=== PATIENT | female | born 1945 | race Caucasian/White ===

== ENCOUNTER 2023-06-09 08:00 | Outpatient (CLI) | payer MEDICARE, MEDICAID ==
[2023-06-09 18:58] LABS: THYROID STIMULATING HORMONE 0.84 uIU/mL (0.34-5.60)
[2023-06-09 20:11] LABS: ESTIMATED AVERAGE GLUCOSE 226 mg/dL (70-100); HEMOGLOBIN A1c% 9.5 % (4.27-6.07)
== END 2023-06-09 23:59 | disposition home or self-care (01) ==
LOC: LAB.R 08:00
PROVIDERS: ATTEND Registered Nurse
DX: E03.9 Hypothyroidism, unspecified (principal); E11.42 Type 2 diabetes mellitus with diabetic polyneuropathy
CPT/HCPCS: 83036; 84439; 84443

== ENCOUNTER 2023-08-04 08:04 | Outpatient (CLI) | payer MEDICARE, MEDICAID ==
--- NOTE | 2023-08-04 11:14 | XRAY Report ---
PROCEDURE: Chest 2 View X-Ray INDICATIONS: PNEUMONIA TECHNIQUE: 2 views of the chest were acquired. COMPARISON: None. FINDINGS: Surgical changes and devices: None. Lungs and pleura: Diffuse coarsening of interstitial markings. No dense consolidation, pleural effus ion, or pneumothorax. Mediastinum: Mediastinal contours appear normal. Heart size is normal. Bones and chest wall: No suspicious bony lesions. Moderate degenerative change in left shoulder. Ove rlying soft tissues appear unremarkable. IMPRESSION: 1. Diffuse coarsening of interstitial markings may indicate edema or interstitial inflammation/ infec tion. Correlate clinically. 2. No dense consolidations or effusions. Reviewed by: Xochitl Sullivan MD on 08/04/2023 11:13 AM PDT Approved by: Xochitl Sullivan MD on 08/04/2023 11:13 AM PDT Station ID: [id number]
== END 2023-08-04 08:05 | disposition home or self-care (01) ==
LOC: DI 08:04
PROVIDERS: ATTEND Registered Nurse
DX: R06.89 Other abnormalities of breathing (principal); D64.9 Anemia, unspecified
CPT/HCPCS: 80053; 85025

== ENCOUNTER 2023-08-04 13:37 | Outpatient (CLI) | payer MEDICARE, MEDICAID ==
[2023-08-04 13:47] LABS: BASOPHILS # (AUTO) 0.1 10^3/uL (0.0-0.1); BASOPHILS % (AUTO) 0.8 %; EOSINOPHILS # (AUTO) 0.5 10^3/uL (0.0-0.7); EOSINOPHILS % (AUTO) 4.2 %; HCT - HEMATOCRIT 40.9 % (37.0-47.0); HGB - HEMOGLOBIN 13.6 g/dL (12.0-16.0); LYMPHOCYTES # (AUTO) 1.8 10^3/uL (1.5-3.5); LYMPHOCYTES % (AUTO) 16.2 %; MEAN CORPUSCULAR HEMOGLOBIN 30.1 pg (27.0-31.0); MEAN CORPUSCULAR HGB CONC 33.3 g/dL (32.0-36.0); MEAN CORPUSCULAR VOLUME 90.5 fL (81.0-99.0); MEAN PLATELET VOLUME 11.3 fL (7.9-10.8); MONOCYTES # (AUTO) 0.6 10^3/uL (0.0-1.0); MONOCYTES % (AUTO) 5.5 %; NEUTROPHILS # (AUTO) 7.7 10^3/uL (1.5-6.6); NEUTROPHILS % (AUTO) 71.8 %; PLT - PLATELET COUNT 253 10^3/uL (130-450); RED BLOOD COUNT 4.52 10^6/uL (4.20-5.40); RED CELL DISTRIBUTION WIDTH 12.3 % (12.0-15.0); WHITE BLOOD COUNT 10.8 x10^3/uL (4.8-10.8)
[2023-08-04 14:04] LABS: ALBUMIN 3.2 g/dL (3.2-5.5); ALBUMIN/GLOBULIN RATIO 1.4 (1.0-2.2); BILIRUBIN,TOTAL 0.4 mg/dL (0.2-1.0); CREATININE 0.8 mg/dL (0.6-1.3); POTASSIUM 3.8 mmol/L (3.5-4.5); TOTAL PROTEIN 5.5 g/dL (6.4-8.9)
== END 2023-08-04 13:38 | disposition home or self-care (01) ==
LOC: LAB.R 13:37
PROVIDERS: ATTEND Registered Nurse
DX: D64.9 Anemia, unspecified (principal)
CPT/HCPCS: 80053; 85025

== ENCOUNTER 2023-10-31 08:00 | Outpatient (CLI) | payer MEDICARE, MEDICAID ==
[2023-10-31 14:05] LABS: BASOPHILS # (AUTO) 0.1 10^3/uL (0.0-0.1); BASOPHILS % (AUTO) 0.6 %; EOSINOPHILS # (AUTO) 0.4 10^3/uL (0.0-0.7); EOSINOPHILS % (AUTO) 3.2 %; HCT - HEMATOCRIT 41.3 % (37.0-47.0); HGB - HEMOGLOBIN 13.4 g/dL (12.0-16.0); LYMPHOCYTES # (AUTO) 1.8 10^3/uL (1.5-3.5); MEAN CORPUSCULAR HEMOGLOBIN 29.3 pg (27.0-31.0); MEAN CORPUSCULAR HGB CONC 32.4 g/dL (32.0-36.0); MEAN CORPUSCULAR VOLUME 90.2 fL (81.0-99.0); MEAN PLATELET VOLUME 11.7 fL (7.9-10.8); MONOCYTES # (AUTO) 0.8 10^3/uL (0.0-1.0); MONOCYTES % (AUTO) 6.5 %; NEUTROPHILS # (AUTO) 8.9 10^3/uL (1.5-6.6); NEUTROPHILS % (AUTO) 74.4 %; PLT - PLATELET COUNT 197 10^3/uL (130-450); RED BLOOD COUNT 4.58 10^6/uL (4.20-5.40); RED CELL DISTRIBUTION WIDTH 13.2 % (12.0-15.0)
[2023-10-31 14:06] LABS: BILIRUBIN,URINE NEGATIVE (NEGATIVE); GLUCOSE, URINE (UA) NEGATIVE (NEGATIVE); KETONES,URINE (UA) NEGATIVE (NEGATIVE); LEUKOCYTE ESTERASE, URINE LARGE (NEGATIVE); NITRITE,URINE NEGATIVE (NEGATIVE); OCCULT BLOOD,URINE LARGE (NEGATIVE); PROTEIN,URINE 100 mg/dL (NEGATIVE); UROBILINOGEN,URINE 0.2 (NORMAL) E.U./dL (NORMAL)
[2023-10-31 14:07] LABS: CLARITY,URINE CLOUDY (CLEAR)
[2023-10-31 14:13] LABS: AMORPHOUS SEDIMENT,UR Few /LPF; BACTERIA,URINE Few /HPF (None Seen); MUCUS,URINE Few Strands; SQUAMOUS EPITHELIAL CELL,UR FEW Squamous (<= Few); WBC,URINE >25 /HPF (0-5)
[2023-10-31 14:20] LABS: CREATININE 0.9 mg/dL (0.6-1.3); POTASSIUM 4.2 mmol/L (3.5-4.5)
== END 2023-10-31 23:59 | disposition home or self-care (01) ==
LOC: LAB.R 08:00
PROVIDERS: ATTEND Registered Nurse
DX: I10 Essential (primary) hypertension (principal); Z86.73 Personal history of transient ischemic attack (TIA), and cerebral infarction without residual deficits; R39.81 Functional urinary incontinence
CPT/HCPCS: 80048; 81001; 85025; 87086; 87181

== ENCOUNTER 2023-11-09 08:00 | Outpatient (CLI) | payer MEDICARE, MEDICAID ==
[2023-11-09 20:00] LABS: BASOPHILS # (AUTO) 0.1 10^3/uL (0.0-0.1); BASOPHILS % (AUTO) 1.1 %; EOSINOPHILS # (AUTO) 0.4 10^3/uL (0.0-0.7); EOSINOPHILS % (AUTO) 4.9 %; HCT - HEMATOCRIT 41.2 % (37.0-47.0); HGB - HEMOGLOBIN 13.3 g/dL (12.0-16.0); LYMPHOCYTES # (AUTO) 1.8 10^3/uL (1.5-3.5); LYMPHOCYTES % (AUTO) 21.1 %; MEAN CORPUSCULAR HEMOGLOBIN 28.8 pg (27.0-31.0); MEAN CORPUSCULAR HGB CONC 32.3 g/dL (32.0-36.0); MEAN CORPUSCULAR VOLUME 89.2 fL (81.0-99.0); MEAN PLATELET VOLUME 11.5 fL (7.9-10.8); MONOCYTES # (AUTO) 0.6 10^3/uL (0.0-1.0); MONOCYTES % (AUTO) 7.2 %; NEUTROPHILS # (AUTO) 5.5 10^3/uL (1.5-6.6); NEUTROPHILS % (AUTO) 65.2 %; PLT - PLATELET COUNT 207 10^3/uL (130-450); RED BLOOD COUNT 4.62 10^6/uL (4.20-5.40); RED CELL DISTRIBUTION WIDTH 13.2 % (12.0-15.0); WHITE BLOOD COUNT 8.4 x10^3/uL (4.8-10.8)
[2023-11-09 20:16] LABS: ALBUMIN 3.6 g/dL (3.2-5.5); ALBUMIN/GLOBULIN RATIO 1.5 (1.0-2.2); BILIRUBIN,TOTAL 0.3 mg/dL (0.2-1.0); CALCIUM 8.9 mg/dL (8.5-10.3); MAGNESIUM 1.6 mg/dL (1.7-2.3); POTASSIUM 4.3 mmol/L (3.5-4.5)
== END 2023-11-09 23:59 | disposition home or self-care (01) ==
LOC: LAB.R 08:00
PROVIDERS: ATTEND Registered Nurse
DX: E11.42 Type 2 diabetes mellitus with diabetic polyneuropathy (principal); D64.9 Anemia, unspecified; E56.9 Vitamin deficiency, unspecified
CPT/HCPCS: 80053; 83735; 85025

== ENCOUNTER 2023-11-24 08:00 | Outpatient (CLI) | payer MEDICARE, MEDICAID ==
[2023-11-24 20:43] LABS: ESTIMATED AVERAGE GLUCOSE 214 mg/dL (70-100); HEMOGLOBIN A1c% 9.1 % (4.27-6.07)
== END 2023-11-24 23:59 | disposition home or self-care (01) ==
LOC: LAB.R 08:00
PROVIDERS: ATTEND Registered Nurse
DX: E11.42 Type 2 diabetes mellitus with diabetic polyneuropathy (principal); F32.2 Major depressive disorder, single episode, severe without psychotic features
CPT/HCPCS: 82306; 83036

== ENCOUNTER 2023-11-29 08:30 | Outpatient (CLI) | payer MEDICARE, MEDICAID ==
[2023-11-29 09:06] LABS: CHOL/HDL RATIO 2.7 (<4.4); CHOLESTEROL 126 mg/dL; HDL CHOLESTEROL 47 mg/dL; LDL CHOLESTEROL,CALCULATED 55 mg/dL; LDL/HDL RATIO 1.2 (<4.4); TRIGLYCERIDES 121 mg/dL (48-352); VLDL CHOLESTEROL 24 mg/dL
== END 2023-11-29 08:31 | disposition home or self-care (01) ==
LOC: LAB 08:30 → LAB.R 08:31
PROVIDERS: ATTEND Registered Nurse
DX: E11.42 Type 2 diabetes mellitus with diabetic polyneuropathy (principal)
CPT/HCPCS: 80061; 83721

== ENCOUNTER 2024-01-09 08:00 | Outpatient (CLI) | payer MEDICARE, MEDICAID ==
[2024-01-09 20:08] LABS: BASOPHILS # (AUTO) 0.1 10^3/uL (0.0-0.1); BASOPHILS % (AUTO) 0.8 %; EOSINOPHILS # (AUTO) 0.4 10^3/uL (0.0-0.7); EOSINOPHILS % (AUTO) 4.4 %; HCT - HEMATOCRIT 41.7 % (37.0-47.0); HGB - HEMOGLOBIN 13.1 g/dL (12.0-16.0); LYMPHOCYTES # (AUTO) 1.7 10^3/uL (1.5-3.5); LYMPHOCYTES % (AUTO) 20.9 %; MEAN CORPUSCULAR HEMOGLOBIN 28.1 pg (27.0-31.0); MEAN CORPUSCULAR HGB CONC 31.4 g/dL (32.0-36.0); MEAN CORPUSCULAR VOLUME 89.5 fL (81.0-99.0); MEAN PLATELET VOLUME 11.4 fL (7.9-10.8); MONOCYTES # (AUTO) 0.7 10^3/uL (0.0-1.0); MONOCYTES % (AUTO) 8.9 %; NEUTROPHILS # (AUTO) 5.1 10^3/uL (1.5-6.6); NEUTROPHILS % (AUTO) 64.5 %; PLT - PLATELET COUNT 187 10^3/uL (130-450); RED BLOOD COUNT 4.66 10^6/uL (4.20-5.40); RED CELL DISTRIBUTION WIDTH 13.3 % (12.0-15.0); WHITE BLOOD COUNT 7.9 x10^3/uL (4.8-10.8)
[2024-01-09 20:23] LABS: ALBUMIN 3.3 g/dL (3.2-5.5); ALBUMIN/GLOBULIN RATIO 1.4 (1.0-2.2); BILIRUBIN,TOTAL 0.4 mg/dL (0.2-1.0); CALCIUM 9.1 mg/dL (8.5-10.3); MAGNESIUM 1.9 mg/dL (1.7-2.3); POTASSIUM 3.9 mmol/L (3.5-4.5); TOTAL PROTEIN 5.6 g/dL (6.4-8.9)
== END 2024-01-09 23:59 | disposition home or self-care (01) ==
LOC: LAB 08:00
PROVIDERS: ATTEND Registered Nurse
DX: I10 Essential (primary) hypertension (principal); D64.9 Anemia, unspecified; Z86.73 Personal history of transient ischemic attack (TIA), and cerebral infarction without residual deficits
CPT/HCPCS: 36415; 80053; 83735; 85025

== ENCOUNTER 2024-01-11 08:00 | Outpatient (CLI) | payer MEDICARE, MEDICAID ==
--- NOTE | 2024-01-11 19:20 | XRAY Report ---
PROCEDURE: Hand 3 View LT INDICATIONS: LEFT HAND PAIN TECHNIQUE: 3 views of the hand(s) acquired. COMPARISON: None. FINDINGS: Bones: There is flexion at the fifth PIP joint. Diffuse osteopenia is seen. No fractures or dislocati ons. Moderate to severe osteoarthritic changes throughout left hand and wrist joints are seen most n otably involving first CMC joint. No definite bony erosive changes. No suspicious bony lesions. Soft tissues: No suspicious soft tissue calcifications or masses. IMPRESSION: Flexion at fourth PIP joint. No acute fracture or dislocation. Diffuse osteopenia. Moderate to severe osteoarthritic changes in left hand as above. Reviewed by: Fuad Olivas MD on 01/11/2024 7:18 PM PDT Approved by: Fuad Olivas MD on 01/11/2024 7:18 PM PDT Station ID: [id number]
== END 2024-01-11 23:59 | disposition home or self-care (01) ==
LOC: DI.WOS 08:00
PROVIDERS: ATTEND Physician Assistant Surgical
DX: M19.042 Primary osteoarthritis, left hand (principal); M85.842 Other specified disorders of bone density and structure, left hand; M19.032 Primary osteoarthritis, left wrist; M18.12 Unilateral primary osteoarthritis of first carpometacarpal joint, left hand

== ENCOUNTER 2024-02-08 09:00 | Outpatient (CLI) | payer MEDICARE, MEDICAID ==
[2024-02-09 09:08] LABS: BILIRUBIN,URINE NEGATIVE (NEGATIVE); GLUCOSE, URINE (UA) 100 mg/dL (NEGATIVE); KETONES,URINE (UA) NEGATIVE (NEGATIVE); LEUKOCYTE ESTERASE, URINE NEGATIVE (NEGATIVE); NITRITE,URINE NEGATIVE (NEGATIVE); OCCULT BLOOD,URINE NEGATIVE (NEGATIVE); PROTEIN,URINE NEGATIVE (NEGATIVE); UROBILINOGEN,URINE 0.2 (NORMAL) E.U./dL (NORMAL)
[2024-02-09 09:14] LABS: CLARITY,URINE CLEAR (CLEAR)
== END 2024-02-08 09:01 | disposition home or self-care (01) ==
LOC: LAB.R 09:00 → LAB 02-09 09:01
PROVIDERS: ATTEND Registered Nurse
DX: N39.0 Urinary tract infection, site not specified (principal)
CPT/HCPCS: 81001; 81003; 87086

== ENCOUNTER 2024-03-03 08:52 | Outpatient (CLI) | payer MEDICARE, MEDICAID ==
[2024-03-03 09:18] LABS: BILIRUBIN,URINE NEGATIVE (NEGATIVE); GLUCOSE, URINE (UA) >=1000 mg/dL (NEGATIVE); KETONES,URINE (UA) NEGATIVE (NEGATIVE); LEUKOCYTE ESTERASE, URINE NEGATIVE (NEGATIVE); NITRITE,URINE NEGATIVE (NEGATIVE); OCCULT BLOOD,URINE NEGATIVE (NEGATIVE); PH,URINE 5.5 PH (5.0-7.5); PROTEIN,URINE NEGATIVE (NEGATIVE); UROBILINOGEN,URINE 0.2 (NORMAL) E.U./dL (NORMAL)
[2024-03-03 09:20] LABS: CLARITY,URINE CLEAR (CLEAR)
== END 2024-03-03 08:53 | disposition home or self-care (01) ==
LOC: LAB.R 08:52
PROVIDERS: ATTEND Registered Nurse
DX: N39.0 Urinary tract infection, site not specified (principal)
CPT/HCPCS: 81001; 81003; 87086

== ENCOUNTER 2024-06-17 08:00 | Outpatient (CLI) | payer MEDICARE, MEDICAID ==
[2024-06-17 15:44] LABS: ALBUMIN 3.9 g/dL (3.2-5.5); ALBUMIN/GLOBULIN RATIO 1.4 (1.0-2.2); BILIRUBIN,TOTAL 0.6 mg/dL (0.2-1.0); CALCIUM 9.6 mg/dL (8.5-10.3); CREATININE 1.1 mg/dL (0.6-1.3); MAGNESIUM 1.9 mg/dL (1.7-2.3); POTASSIUM 4.6 mmol/L (3.5-4.5); TOTAL PROTEIN 6.7 g/dL (6.4-8.9)
[2024-06-17 17:15] LABS: THYROID STIMULATING HORMONE 3.66 uIU/mL (0.34-5.60)
== END 2024-06-17 23:59 | disposition home or self-care (01) ==
LOC: LAB.R 08:00
PROVIDERS: ATTEND Family Medicine
DX: I10 Essential (primary) hypertension (principal); E78.5 Hyperlipidemia, unspecified; E11.42 Type 2 diabetes mellitus with diabetic polyneuropathy; E61.2 Magnesium deficiency; E03.9 Hypothyroidism, unspecified
CPT/HCPCS: 80053; 83036; 83735; 84443; 85025

== ENCOUNTER 2024-11-29 05:43 | Inpatient (IN) ==
[2024-11-29 06:05] LABS: BASOPHILS % (AUTO) 0.9 %; EOSINOPHILS % (AUTO) 0.2 %; HCT - HEMATOCRIT 48.2 % (37.0-47.0); HGB - HEMOGLOBIN 15.3 g/dL (12.0-16.0); MEAN CORPUSCULAR HEMOGLOBIN 28.4 pg (27.0-31.0); MEAN CORPUSCULAR HGB CONC 31.7 g/dL (32.0-36.0); MEAN CORPUSCULAR VOLUME 89.6 fL (81.0-99.0); MEAN PLATELET VOLUME 11.6 fL (7.9-10.8); MONOCYTES % (AUTO) 14.6 %; NEUTROPHILS % (AUTO) 68.7 %; PLT - PLATELET COUNT 185 10^3/uL (130-450); RED BLOOD COUNT 5.38 10^6/uL (4.20-5.40); RED CELL DISTRIBUTION WIDTH 14.1 % (12.0-15.0); WHITE BLOOD COUNT 10.6 x10^3/uL (4.8-10.8)
--- NOTE | 2024-11-29 06:11 | ED Physician Documentation ---
PD HPI DYSPNEA Stated complaint Stated Complaint: + COVID Chief complaint Chief Complaint: Resp History obtained from History obtained from: EMS Additional information Additional information: 79yF with pmh MARK, DM ,TIA Presents with shortness of breath overnight and hypoxia with confusion after being diagnosed with COVID yesterday. Patient was lethargic overnight and had oxygen saturation in the low 80s on room air. She is normally alert and oriented x 3 and today cannot identify the month or year appropriately. Further history limited by patient altered mental status. Meds/Allgy Home Medications Ambulatory Orders Medication Instructions Recorded Confirmed amlodipine 10 mg tablet (Norvasc) 10 mg PO QDAY 11/13/24 11/14/24 aripiprazole 5 mg tablet 5 mg PO QDAY 11/13/24 11/14/24 atorvastatin 10 mg tablet (Lipitor) 10 mg PO QDAY 11/13/24 11/14/24 bupropion HCl 150 mg 24 hr tablet, 150 mg PO QAM 11/13/24 11/14/24 extended release (Wellbutrin XL) diclofenac sodium 1 % topical gel 4 g topical QID 11/13/24 11/14/24 diphenoxylate-atropine 2.5 1 tab PO QDAY 11/13/24 11/14/24 mg-0.025 mg tablet duloxetine 30 mg capsule,delayed 30 mg PO QDAY 11/13/24 11/14/24 release empagliflozin 10 mg tablet 10 mg PO QDAY 11/13/24 11/14/24 (Jardiance) furosemide 20 mg tablet 20 mg PO QDAY 11/13/24 11/14/24 hydrocortisone 2.5 % topical cream 1 applic topical BID PRN rash 11/13/24 11/14/24 hydroxyzine HCl 25 mg tablet 25 mg PO BID PRN itching 11/13/24 11/14/24 insulin glargine 100 unit/mL (3 10 unit subcut .unknown 11/13/24 11/14/24 mL) subcutaneous pen (Basaglar KwikPen U-100 Insulin) insulin glargine 100 unit/mL (3 1 unit subcut QPM 11/13/24 11/14/24 mL) subcutaneous pen (Lantus Solostar U-100 Insulin) insulin lispro 100 unit/mL 1 sliding scale dose subcut 11/13/24 11/14/24 subcutaneous pen (Humalog KwikPen USEASDIRECTD (U-100) Insulin) levothyroxine 175 mcg capsule 175 mcg PO QDAY 11/13/24 11/15/24 lidocaine 5 % topical patch 2 patch topical QDAY 11/13/24 11/14/24 lisinopril 20 mg tablet 30 mg PO QDAY 11/13/24 11/14/24 lisinopril 30 mg tablet 30 mg PO QDAY 11/13/24 11/14/24 montelukast 4 mg chewable tablet 4 mg PO DAILY 11/13/24 11/14/24 nystatin 100,000 unit/mL oral 1 ml PO QDAY 11/13/24 11/14/24 suspension oxycodone 5 mg tablet 5 mg PO Q4H PRN pain #10 tabs 11/13/24 11/14/24 oxycodone-acetaminophen 5 mg-325 1 tab PO Q8H PRN pain 11/13/24 11/14/24 mg tablet pregabalin 150 mg capsule 150 mg PO QDAY 11/13/24 11/14/24 Allergies Allergies Allergy/AdvReac Type Severity Reaction Status Date / Time venom-honey bee Allergy Severe Anaphylaxis Verified 11/29/24 05:56 potassium sorbate Allergy Mild Unknown Verified 11/29/24 05:56 warfarin AdvReac Mild Alopecia Verified 11/29/24 05:56 [facility] Medical History Medical History (Updated 11/15/24 @ 08:09 by Fady Lo MD) COPD (chronic obstructive pulmonary disease) IBS (irritable bowel syndrome) TIA (transient ischemic attack) Trigger finger of left hand Surgical History Surgical History (Updated 11/13/24 @ 11:17 by Albina Ferrara CMA, ROT) History of arthroplasty of both knees Social History Social History (Updated 11/14/24 @ 14:17 by Neelam Martinez RN) Smoking Status: Unknown if ever smoked Second hand tobacco smoke exposure: No Do you dip or chew tobacco?: No Do you vape?: No Living arrangement: Assisted living and group home Relationship: Do you feel safe in your home environment?: Yes Suffered physical, verbal, emotional, or financial abuse?: No Exam Constitutional elderly appearing with mild increased work of breathing HENMT normocephalic and head/scalp atraumatic Eyes PERRL and EOMs intact bilaterally Neck/C-Spine visual inspection normal Chest inspection of chest normal Respiratory coarse bilateral breath sounds, mild increased wob Cardiovascular normal heart rate noted and regular rhythm noted Gastrointestinal abdomen normal to inspection Results Vitals Vitals: Vital Signs - 24 hr 11/29/24 05:51 Temperature 36.0 C L Temperature Source Temporal Artery Scan Pulse Rate 89 Respiratory Rate 18 Blood Pressure 151/57 H O2 Saturation 88 L O2 Source Room air Pain Intensity 0 Oxygen O2 Source Room air PD Medical Decision Making ED course ED course: 79-year-old woman presents with hypoxia, altered mental status, lethargy in the setting of recent COVID diagnosis yesterday. Medical workup was undertaken and patient will be admitted pending bed availability. We are currently boarding to patient's already for admission in the emergency department and she will be the third patient boarding for admission. Plan to endorse to incoming daytime EDMD at 7 AM shift change. Discharge Plan Discharge Prescriptions: No Action insulin glargine [Basaglar KwikPen U-100 Insulin] 100 unit/mL (3 mL) insulin pen 10 unit subcut .unknown diclofenac sodium 1 % gel 4 g topical QID Rx Instructions: apply to single knee, ankle, foot; for foot includes sole/toes/top of foot Jardiance 10 mg tablet 10 mg PO QDAY insulin glargine [Lantus Solostar U-100 Insulin] 100 unit/mL (3 mL) insulin pen 1 unit subcut QPM pregabalin 150 mg capsule 150 mg PO QDAY duloxetine 30 mg capsule,delayed release(DR/EC) 30 mg PO QDAY aripiprazole 5 mg tablet 5 mg PO QDAY bupropion HCl [Wellbutrin XL] 150 mg tablet extended release 24 hr 150 mg PO QAM insulin lispro [Humalog KwikPen Insulin] 100 unit/mL insulin pen 1 sliding scale dose subcut USEASDIRECTD hydrocortisone 2.5 % cream 1 applic topical BID PRN (Reason: rash) furosemide 20 mg tablet 20 mg PO QDAY lisinopril 30 mg tablet 30 mg PO QDAY oxycodone-acetaminophen 5-325 mg tablet 1 tab PO Q8H PRN (Reason: pain) nystatin 100,000 unit/mL suspension 1 ml PO QDAY Rx Instructions: swish and swallow hydroxyzine HCl 25 mg tablet 25 mg PO BID PRN (Reason: itching) montelukast 4 mg tablet,chewable 4 mg PO DAILY lidocaine 5 % adhesive patch,medicated 2 patch topical QDAY Rx Instructions: leave on most painful area for up to 12 hrs amlodipine [Norvasc] 10 mg tablet 10 mg PO QDAY diphenoxylate-atropine 2.5-0.025 mg tablet 1 tab PO QDAY atorvastatin [Lipitor] 10 mg tablet 10 mg PO QDAY lisinopril 20 mg tablet 30 mg PO QDAY levothyroxine 175 mcg capsule 175 mcg PO QDAY oxycodone 5 mg tablet 5 mg PO Q4H PRN (Reason: pain) Qty: 10 0RF Print Language: Uzbek Stand Alone Forms: PCP List
[2024-11-29 06:12] LABS: ABNORMAL LYMPHS % (MANUAL) 0 %
[2024-11-29 06:32] LABS: ALBUMIN 3.7 g/dL (3.2-5.5); ALBUMIN/GLOBULIN RATIO 1.4 (1.0-2.2); ALKALINE PHOSPHATASE 94 IU/L (42-121); ALT ALANINE AMINOTRANSFERASE 20 IU/L (10-60); AST ASPARTATE AMINOTRANSFERASE 21 IU/L (10-42); BILIRUBIN,TOTAL 0.8 mg/dL (0.2-1.0); BUN - BLOOD UREA NITROGEN 34 mg/dL (6-20); CALCIUM 9.2 mg/dL (8.5-10.3); CARBON DIOXIDE - CO2 29 mmol/L (21-32); CHLORIDE 105 mmol/L (101-111); CREATININE 1.3 mg/dL (0.6-1.3); GFR - MDRD 39 (>89); GLUCOSE 199 mg/dL (74-104); POTASSIUM 4.7 mmol/L (3.5-4.5); SODIUM 141 mmol/L (135-145); TOTAL PROTEIN 6.4 g/dL (6.4-8.9)
[2024-11-29] MEDS: SODIUM CHLORIDE 0.9% 500 ML IV ONE (06:32)
[2024-11-29 06:36] LABS: LIPASE < 10 U/L (11-82)
[2024-11-29 06:37] LABS: VBG PCO2 36.1 mmHg (41-51); VBG PH 7.486 (7.31-7.41)
[2024-11-29 06:38] LABS: VBG BASE EXCESS 3.9 mmol/L (-2 - +2); VBG TOTAL CO2 28.6 mmol/L (24-29)
[2024-11-29 06:48] LABS: BAND NEUTROPHILS % (MANUAL) 3 %; DIFFERENTIAL COMMENT MANUAL DIFFERENTIAL; EOSINOPHILS # (MANUAL) 0.1 10^3/uL (0-0.7); LYMPHOCYTES # (MANUAL) 1.6 10^3/uL (1.5-3.5); LYMPHOCYTES % (MANUAL) 15 %; MONOCYTES # (MANUAL) 1.9 10^3/uL (0.0-1.0); PLATELET ESTIMATE, MANUAL NORMAL (130-450,000) (NORMAL); PLATELET MORPHOLOGY NORMAL APPEARANCE (NORMAL); RBC MORPHOLOGY (MULTIPLE) NORMAL APPEARANCE (NORMAL); WBC MORPHOLOGY (MULTIPLE) NORMAL APPEARANCE (NORMAL)
--- NOTE | 2024-11-29 08:14 | XRAY Report ---
PROCEDURE: XR Chest 1V INDICATIONS: Chest Pain TECHNIQUE: One view of the chest was acquired. COMPARISON: None. FINDINGS: Surgical changes and devices: None. Lungs and pleura: No pleural effusions or pneumothorax. Question patchy right basilar atelectasis.. Mediastinum: Mediastinal contours appear normal. Rotated film. Heart size is likely normal. Bones and chest wall: No suspicious bony lesions. Overlying soft tissues appear unremarkable. IMPRESSION: Rotated view. Question patchy right basilar atelectasis. Heart size is likely normal. Findings are concordant with preliminary interpretation provided by [facility]. Reviewed by: David Erickson MD on 11/29/2024 8:13 AM PST Approved by: David Erickson MD on 11/29/2024 8:13 AM PST Station ID: [id number]
--- NOTE | 2024-11-29 11:28 | ED Physician Documentation ---
ED Addendum Addendum Addendum: I did talk with the hospitalist at morning rounds at 9 AM. They were expecting 1 or 2 discharges this afternoon so for the patient will make it to the floor. Meanwhile I did order her usual scheduled medicines that were appropriate for the day. She still seems generally weak and a bit confused. She remains responsive and answers questions. Still seems oriented not to fully to events. Anticipate hospitalization still when beds are available later today. Recheck at 1430 showing the patient at 94% on 2 L nasal cannula and resting comfortably. Still seems general weakness. She has a pure wick in place and is showing urine output. Still awaiting bed availability on the floor pending discharges from there. Discharge Plan Discharge Patient Disposition: [facility] DC/Xfer Condition: Fair Clinical Impression: Hypoxia, COVID Prescriptions: No Action insulin glargine [Basaglar KwikPen U-100 Insulin] 100 unit/mL (3 mL) insulin pen 10 unit subcut .unknown diclofenac sodium 1 % gel 4 g topical QID Rx Instructions: apply to single knee, ankle, foot; for foot includes sole/toes/top of foot Jardiance 10 mg tablet 10 mg PO QDAY insulin glargine [Lantus Solostar U-100 Insulin] 100 unit/mL (3 mL) insulin pen 1 unit subcut QPM pregabalin 150 mg capsule 150 mg PO QDAY duloxetine 30 mg capsule,delayed release(DR/EC) 30 mg PO QDAY aripiprazole 5 mg tablet 5 mg PO QDAY bupropion HCl [Wellbutrin XL] 150 mg tablet extended release 24 hr 150 mg PO QAM insulin lispro [Humalog KwikPen Insulin] 100 unit/mL insulin pen 1 sliding scale dose subcut USEASDIRECTD hydrocortisone 2.5 % cream 1 applic topical BID PRN (Reason: rash) furosemide 20 mg tablet 20 mg PO QDAY lisinopril 30 mg tablet 30 mg PO QDAY oxycodone-acetaminophen 5-325 mg tablet 1 tab PO Q8H PRN (Reason: pain) nystatin 100,000 unit/mL suspension 1 ml PO QDAY Rx Instructions: swish and swallow hydroxyzine HCl 25 mg tablet 25 mg PO BID PRN (Reason: itching) montelukast 4 mg tablet,chewable 4 mg PO DAILY lidocaine 5 % adhesive patch,medicated 2 patch topical QDAY Rx Instructions: leave on most painful area for up to 12 hrs amlodipine [Norvasc] 10 mg tablet 10 mg PO QDAY diphenoxylate-atropine 2.5-0.025 mg tablet 1 tab PO QDAY atorvastatin [Lipitor] 10 mg tablet 10 mg PO QDAY lisinopril 20 mg tablet 30 mg PO QDAY levothyroxine 175 mcg capsule 175 mcg PO QDAY oxycodone 5 mg tablet 5 mg PO Q4H PRN (Reason: pain) Qty: 10 0RF Print Language: Lithuanian
[2024-11-29] MEDS: ALBUTEROL 1 PUFF INH SCH (12:57)
[2024-11-29] MEDS: ACETAMINOPHEN 325 MG TABLET PO SCH (14:50)
--- NOTE | 2024-11-29 17:05 | PHARMACY PROGRESS NOTE ---
Best Possible Medication History Admit Date and Time: Home Medications Medication Instructions Recorded Confirmed Type amlodipine 10 mg tablet (Norvasc) 10 mg PO QDAY 11/13/24 11/29/24 History aripiprazole 5 mg tablet 2.5 mg PO QPM 11/13/24 11/29/24 History atorvastatin 10 mg tablet (Lipitor) 10 mg PO QPM 11/13/24 11/29/24 History bupropion HCl 150 mg 24 hr tablet, 150 mg PO DAILY 11/13/24 11/29/24 History extended release (Wellbutrin XL) diclofenac sodium 1 % topical gel 4 g topical QID PRN pain 11/13/24 11/29/24 History diphenoxylate-atropine 2.5 1 tab PO DAILY PRN diarrhea 11/13/24 11/29/24 History mg-0.025 mg tablet duloxetine 30 mg capsule,delayed 30 mg PO BID 11/13/24 11/29/24 History release empagliflozin 10 mg tablet 10 mg PO DAILY 11/13/24 11/29/24 History (Jardiance) furosemide 20 mg tablet 20 mg PO BID 11/13/24 11/29/24 History lisinopril 30 mg tablet 30 mg PO DAILY 11/13/24 11/29/24 History pregabalin 150 mg capsule 150 mg PO BID 11/13/24 11/29/24 History acetaminophen 325 mg tablet 650 mg PO Q6H PRN pain, mild 11/29/24 11/29/24 History aspirin 81 mg chewable tablet 81 mg PO DAILY 11/29/24 11/29/24 History buspirone 5 mg tablet 5 mg PO TID 11/29/24 11/29/24 History calcium 600 mg (as 1 tab PO BID 11/29/24 11/29/24 History carbonate)-vitamin D3 5 mcg (200 unit) tablet (Calcium 600 + D(3)) cholecalciferol (vitamin D3) 50 50 mcg PO DAILY 11/29/24 11/29/24 History mcg (2,000 unit) capsule cranberry 500 mg capsule 500 mg PO DAILY 11/29/24 11/29/24 History guaifenesin 600 mg tablet, 600 mg PO BID PRN cough 11/29/24 11/29/24 History extended release 12 hr (Mucinex) hydrocodone 5 mg-acetaminophen 325 1 tab PO BID PRN pain, moderate 11/29/24 11/29/24 History mg tablet insulin aspart U-100 100 unit/mL 1 sliding scale dose subcut TIDWM 11/29/24 11/29/24 History (3 mL) subcutaneous pen (Novolog FlexPen U-100 Insulin aspart) insulin glargine-yfgn 100 unit/mL 22 unit subcut QPM 11/29/24 11/29/24 History (3 mL) subcutaneous pen insulin glargine-yfgn 100 unit/mL 40 unit subcut QAM 11/29/24 11/29/24 History (3 mL) subcutaneous pen levothyroxine 175 mcg tablet 175 mcg PO QDAC 11/29/24 11/29/24 History magnesium L-lactate 84 mg 84 mg PO DAILY 11/29/24 11/29/24 History tablet,extended release montelukast 10 mg tablet 10 mg PO QPM 11/29/24 11/29/24 History multivitamin (Daily Multi-Vitamin 1 tab PO DAILY 11/29/24 11/29/24 History tablet) omeprazole 20 mg capsule,delayed 20 mg PO QDBREAKFAST 11/29/24 11/29/24 History release polyethylene glycol 3350 17 gram 17 g PO DAILY 11/29/24 11/29/24 History oral powder packet (Miralax) potassium chloride 20 mEq 20 meq PO BID 11/29/24 11/29/24 History tablet,extended release(part/cryst) urea 20 % topical cream 1 applic topical QPM PRN healing 11/29/24 11/29/24 History (Ureacin-20) fissures vitamin B complex (Vitamins B 1 cap PO DAILY 11/29/24 11/29/24 History Complex capsule) Processed by: Pharmacy Medications reviewed in ED?: Yes Medication History completed: Yes Secondary Source(s): Insurance records and Facility MAR as ONLY source [facility] Statement: As the person ultimately responsible for medication therapy, providers are able to order a medication from an existing home medication list in [facility] via the "Reconcile Routine" prior to Confirmation of that medication by desktop support engineer. Such practice is discouraged except when the physician, in their clinical judgment, deems that a medical need exists for a medication without regard to previous use.
[2024-11-29] MEDS: INSULIN LISPRO 300 UNIT/3 ML PEN SUBQ SCH (20:38)
[2024-11-29] MEDS: INSULIN GLARGINE-YFGN 300 UNIT/3 ML PEN SUBQ SCH (20:39)
[2024-11-29] MEDS: busPIRone 5 MG TABLET PO SCH (20:40)
[2024-11-29] MEDS: DONEPEZIL 5 MG TABLET PO SCH (20:41)
[2024-11-29] MEDS: MIRTAZAPINE 15 MG TABLET PO SCH (20:42)
[2024-11-29] MEDS: ATORVASTATIN 10 MG TABLET PO SCH (20:42)
[2024-11-29] MEDS: risperiDONE 1 MG TABLET PO SCH (20:43)
[2024-11-29] MEDS: PREGABALIN 25 MG CAPSULE PO SCH (20:44)
[2024-11-30] MEDS: FUROSEMIDE 20 MG TABLET PO SCH (06:18)
[2024-11-30] MEDS: LEVOTHYROXINE 75 MCG TABLET PO SCH (06:43)
[2024-11-30] MEDS: LEVOTHYROXINE 100 MCG TABLET PO SCH (06:43)
--- NOTE | 2024-11-30 09:31 | XRAY Report ---
PROCEDURE: XR Chest 1V INDICATIONS: hypoxia TECHNIQUE: One view of the chest was acquired. COMPARISON: Chest x-ray 11/29/2024 FINDINGS: Surgical changes and devices: None. Lungs and pleura: Overall appearance of increased pulmonary vascularity appearing more prominent. Mediastinum: Mediastinal contours appear normal. Heart size is enlarged. Bones and chest wall: No suspicious bony lesions. Overlying soft tissues appear unremarkable. IMPRESSION: Increased appearance of pulmonary vascularity suggestive of edema. Reviewed by: Kylie Mcintyre MD on 11/30/2024 9:29 AM PST Approved by: Kylie Mcintyre MD on 11/30/2024 9:29 AM PST Station ID: [id number]
[2024-11-30] MEDS: ACETAMINOPHEN 650 MG SUPP PR STA (10:41)
--- NOTE | 2024-11-30 10:45 | ED Physician Documentation ---
ED Addendum Addendum Addendum: The patient was signed out to me at change of shift, pending admission to the hospital. She had presented with hypoxia and a diagnosis of COVID at an outside establishment prior to coming here. The patient had had a chest x-ray showing what appeared to be small patchy infiltrates. The patient had been hypoxic upon arrival and placed on supplemental oxygen at 2 L per nasal cannula and was satting in the low 90s. We did not have a respiratory PCR panel done here and The patient has not been treated with antibiotics for the chest x-ray findings. I ordered a repeat chest x-ray to see how the patient's lungs were doing, and I have also added a respiratory PCR panel. I spoke with Dr. Bah who is on for hospitalist duty and she did agree to admit the patient to her service for hypoxia. The patient Had presented with confusion which was a significant alteration from her baseline mental status. I did go evaluate her as nursing staff had found her to have spiked a fever again and the patient was quite somnolent. However, she did arouse and answer simple questions when I spoke her name. I treated her with rectal Tylenol for her fever as she was not really with it enough to swallow pills. Her repeat chest x-ray showed worsening of the original findings, consistent with some edema. I have treated her with antibiotics here in the ED since she does have a fever and initially, the findings look more like a small pneumonia. However, we will have to be careful about fluids because of her baseline congestive heart failure and the pulmonary edema that we are seeing now on the x-ray. We will also consider the potential for development of ARDS. Final impression: 1. Presumed COVID 2. Pneumonia 3. Pulmonary edema Disposition: Admitted to the hospital in serious condition. Discharge Plan Discharge Patient Disposition: 66 [facility] DC/Xfer Condition: Fair Clinical Impression: Hypoxia, COVID Prescriptions: No Action potassium chloride 20 mEq tablet,ER particles/crystals 20 meq PO BID insulin glargine-yfgn 100 unit/mL (3 mL) insulin pen 22 unit SUBCUT QPM Rx Instructions: Hold if BG <100 or resident did not eat insulin glargine-yfgn 100 unit/mL (3 mL) insulin pen 40 unit subcut QAM Rx Instructions: Hold if BG<100 or resident did not eat calcium carbonate-vitamin D3 [Calcium 600 + D(3)] 600 mg-5 mcg (200 unit) tablet 1 tab PO BID hydrocodone-acetaminophen 5-325 mg tablet 1 tab PO BID PRN (Reason: pain, moderate) insulin aspart U-100 [Novolog FlexPen U-100 Insulin] 100 unit/mL (3 mL) insulin pen 1 sliding scale dose subcut TIDWM Rx Instructions: If B - 140 = 0 units 141 - 175 = 1 unit 176 - 225 = 2 units 226 - 275 = 3 units 276 - 325 = 4 units 326 - 375 = 5 units 376+ Contact urea [Ureacin-20] 20 % cream 1 applic topical QPM PRN (Reason: healing fissures) buspirone 5 mg tablet 5 mg PO TID polyethylene glycol 3350 [Miralax] 17 gram powder in packet 17 g PO DAILY omeprazole 20 mg capsule,delayed release(DR/EC) 20 mg PO QDBREAKFAST guaifenesin [Mucinex] 600 mg tablet extended release 12hr 600 mg PO BID PRN (Reason: cough) montelukast 10 mg tablet 10 mg PO QPM vitamin B complex [Vitamins B Complex] Capsule 1 cap PO DAILY multivitamin [Daily Multi-Vitamin] Tablet 1 tab PO DAILY magnesium L-lactate 84 mg tablet extended release 84 mg PO DAILY aspirin 81 mg tablet,chewable 81 mg PO DAILY levothyroxine 175 mcg tablet 175 mcg PO QDAC cranberry 500 mg capsule 500 mg PO DAILY Rx Instructions: administer with a meal cholecalciferol (vitamin D3) 50 mcg (2,000 unit) capsule 50 mcg PO DAILY acetaminophen 325 mg tablet 650 mg PO Q6H PRN (Reason: pain, mild) diclofenac sodium 1 % gel 4 g topical QID PRN (Reason: pain) Rx Instructions: apply to single knee, ankle, foot; for foot includes sole/toes/top of foot Jardiance 10 mg tablet 10 mg PO DAILY pregabalin 150 mg capsule 150 mg PO BID duloxetine 30 mg capsule,delayed release(DR/EC) 30 mg PO BID aripiprazole 5 mg tablet 2.5 mg PO QPM bupropion HCl [Wellbutrin XL] 150 mg tablet extended release 24 hr 150 mg PO DAILY furosemide 20 mg tablet 20 mg PO BID lisinopril 30 mg tablet 30 mg PO DAILY Rx Instructions: Hold if SBP <110 amlodipine [Norvasc] 10 mg tablet 10 mg PO QDAY Rx Instructions: Hold for SBP <110 or HR <60 diphenoxylate-atropine 2.5-0.025 mg tablet 1 tab PO DAILY PRN (Reason: diarrhea) atorvastatin [Lipitor] 10 mg tablet 10 mg PO QPM Print Language: Danish
[2024-11-30] MEDS: INSULIN GLARGINE-YFGN 300 UNIT/3 ML PEN SUBQ SCH ×2 (10:52→20:37)
[2024-11-30] MEDS: POTASSIUM CHLORIDE 20 MEQ TABLET PO SCH (11:00)
[2024-11-30] MEDS: buPROPion XL 150 MG TABLET PO SCH (11:01)
[2024-11-30] MEDS: amLODIPine 5 MG TABLET PO SCH (11:01)
[2024-11-30] MEDS: lisinopriL 5 MG TABLET PO SCH (11:02)
[2024-11-30] MEDS: DULoxetine 30 MG CAPSULE PO SCH (11:02)
[2024-11-30 11:49] LABS: B. PARAPERTUSSIS- RESP PCR PAN NOT DETECTED; B. PERTUSSIS- RESP PCR PANEL NOT DETECTED; C. PNEUMONIAE- RESP PCR PANEL NOT DETECTED; CORONAVIRUS 229E-RESP PCR NOT DETECTED; CORONAVIRUS HKU1-RESP PCR NOT DETECTED; CORONAVIRUS NL63-RESP PCR NOT DETECTED; CORONAVIRUS OC43-RESP PCR NOT DETECTED; HUMAN METAPNEUMOVIRUS NOT DETECTED; INFLUENZA A- RESP PCR PANEL NOT DETECTED; INFLUENZA B - RESP PCR PANEL NOT DETECTED; M. PNEUMONIAE- RESP PCR PANEL NOT DETECTED; PARAINFLUENZA VIRUS 1 NOT DETECTED; PARAINFLUENZA VIRUS 2 NOT DETECTED; PARAINFLUENZA VIRUS 4 NOT DETECTED; RHINOVIRUS/ENTEROVIRUS NOT DETECTED; RSV- RESP PCR PANEL NOT DETECTED
[2024-11-30 11:52] LABS: SARS-CoV-2 -RESP PCR PANEL DETECTED
--- NOTE | 2024-11-30 12:41 | HISTORY & PHYSICAL EXAMINATION ---
Chief Complaint Chief Complaint Chief Complaint: Covid, symptomatic History of Present Illness Admitted From Admitted From:: [facility] History Obtained From Records Reviewed: minimal available, no records from SNF History obtained from: bedside RN, phone conversation with son Cesar. History of Present Illness HPI Comment/Other: 79-year-old female who has been in the ED for approximately 30 hours. She came in from where she lives at [facility] with a previous positive COVID test feeling ill and having some desaturations to 88% on room air. Apparently she recovered when she was brought into the emergency department and had been on room air for a period of time. She then has decompensated during the night with increasing oxygen requirements now requiring 2 L of nasal cannula oxygen to maintain a saturation of 92 to 93% has become intermittently obtunded and febrile to 101.5. The emergency department has asked us to admit this patient she was discussed with Dr. Torres. We are admitting her for acute hypoxic respiratory failure with COVID-19 infection and altered mental status. She moved from [place] about 2 years ago when she was living in poor conditions with minimal assistance in her own home. She was not doing well at that time. She lived with her granddaughter for about a year over in [place] when her care needs became too much to handle. She has never been a physically active person and has been wheelchair-bound for the last 6 to 8 months. Previous to that she was using a walker. She has had lots of weight gain since moving from [place] to [place]. Her diabetes is not well-controlled and she struggles with incontinence. Her son Cesar relates to me that he is her eldest and only living child and would therefore be her surrogate decision maker. He relates to me that she does want DNR status. He believes there is a POLST on file at [facility] but I need to obtain this document. Mentally however his mother is quite sharp. She enjoys sitting and doing art projects is a good conversationalist and has not had any problems with dementia. Meds/Allgy Home Medications Ambulatory Orders Medication Instructions Recorded Confirmed amlodipine 10 mg tablet (Norvasc) 10 mg PO QDAY 11/13/24 11/29/24 aripiprazole 5 mg tablet 2.5 mg PO QPM 11/13/24 11/29/24 atorvastatin 10 mg tablet (Lipitor) 10 mg PO QPM 11/13/24 11/29/24 bupropion HCl 150 mg 24 hr tablet, 150 mg PO DAILY 11/13/24 11/29/24 extended release (Wellbutrin XL) diclofenac sodium 1 % topical gel 4 g topical QID PRN pain 11/13/24 11/29/24 diphenoxylate-atropine 2.5 1 tab PO DAILY PRN diarrhea 11/13/24 11/29/24 mg-0.025 mg tablet duloxetine 30 mg capsule,delayed 30 mg PO BID 11/13/24 11/29/24 release empagliflozin 10 mg tablet 10 mg PO DAILY 11/13/24 11/29/24 (Jardiance) furosemide 20 mg tablet 20 mg PO BID 11/13/24 11/29/24 lisinopril 30 mg tablet 30 mg PO DAILY 11/13/24 11/29/24 pregabalin 150 mg capsule 150 mg PO BID 11/13/24 11/29/24 acetaminophen 325 mg tablet 650 mg PO Q6H PRN pain, mild 11/29/24 11/29/24 aspirin 81 mg chewable tablet 81 mg PO DAILY 11/29/24 11/29/24 buspirone 5 mg tablet 5 mg PO TID 11/29/24 11/29/24 calcium 600 mg (as 1 tab PO BID 11/29/24 11/29/24 carbonate)-vitamin D3 5 mcg (200 unit) tablet (Calcium 600 + D(3)) cholecalciferol (vitamin D3) 50 50 mcg PO DAILY 11/29/24 11/29/24 mcg (2,000 unit) capsule cranberry 500 mg capsule 500 mg PO DAILY 11/29/24 11/29/24 guaifenesin 600 mg tablet, 600 mg PO BID PRN cough 11/29/24 11/29/24 extended release 12 hr (Mucinex) hydrocodone 5 mg-acetaminophen 325 1 tab PO BID PRN pain, moderate 11/29/24 11/29/24 mg tablet insulin aspart U-100 100 unit/mL 1 sliding scale dose subcut TIDWM 11/29/24 11/29/24 (3 mL) subcutaneous pen (Novolog FlexPen U-100 Insulin aspart) insulin glargine-yfgn 100 unit/mL 22 unit subcut QPM 11/29/24 11/29/24 (3 mL) subcutaneous pen insulin glargine-yfgn 100 unit/mL 40 unit subcut QAM 11/29/24 11/29/24 (3 mL) subcutaneous pen levothyroxine 175 mcg tablet 175 mcg PO QDAC 11/29/24 11/29/24 magnesium L-lactate 84 mg 84 mg PO DAILY 11/29/24 11/29/24 tablet,extended release montelukast 10 mg tablet 10 mg PO QPM 11/29/24 11/29/24 multivitamin (Daily Multi-Vitamin 1 tab PO DAILY 11/29/24 11/29/24 tablet) omeprazole 20 mg capsule,delayed 20 mg PO QDBREAKFAST 11/29/24 11/29/24 release polyethylene glycol 3350 17 gram 17 g PO DAILY 11/29/24 11/29/24 oral powder packet (Miralax) potassium chloride 20 mEq 20 meq PO BID 11/29/24 11/29/24 tablet,extended release(part/cryst) urea 20 % topical cream 1 applic topical QPM PRN healing 11/29/24 11/29/24 (Ureacin-20) fissures vitamin B complex (Vitamins B 1 cap PO DAILY 11/29/24 11/29/24 Complex capsule) Allergies Allergies Allergy/AdvReac Type Severity Reaction Status Date / Time venom-honey bee Allergy Severe Anaphylaxis Verified 11/29/24 06:53 potassium sorbate Allergy Mild Unknown Verified 11/29/24 06:53 warfarin AdvReac Mild Alopecia Verified 11/29/24 06:53 [facility] Medical History Medical History (Updated 11/30/24 @ 19:13 by INOCENTE Zavaleta) COPD (chronic obstructive pulmonary disease) IBS (irritable bowel syndrome) TIA (transient ischemic attack) Trigger finger of left hand Surgical History Surgical History History of arthroplasty of both knees Social History Social History (Updated 11/14/24 @ 14:17 by Neelam Martinez RN) Smoking Status: Never smoker Second hand tobacco smoke exposure: No Do you dip or chew tobacco?: No Do you vape?: No Living arrangement: Assisted living and snf Relationship: Level: Independent Do you feel safe in your home environment?: Yes Suffered physical, verbal, emotional, or financial abuse?: No POLST Patient has POLST: No Review of Systems Status of ROS: unobtainable due to mental status Constitutional Reports: Fever Prior Level of Functionality: Unknown. I do not know who her surrogate medical decision maker is. I do not know who her primary care doctor is. I do have 2 children listed on the profile and will be contacting them. Exam Constitutional Appears ill HENMT normocephalic and external ears normal Eyes conjunctivae normal and no scleral icterus Neck/C-Spine visual inspection normal, trachea midline and no carotid bruits Lymph no lymphadenopathy noted Chest inspection of chest normal Respiratory breath sounds equal bilaterally, normal respiratory effort, clear to auscultation bilaterally, no wheezes and no rales Cardiovascular normal heart rate noted, regular rhythm noted and no murmur (ARIANE) Gastrointestinal abdomen normal to inspection and abdomen soft to palpation Extremities erythema of left lower extremity, mid calf and below, no edema or tenderness. Neurology no movement abnormality noted and GCS calculation - (12) Eye opening: Spontaneous Verbal response: Confused Motor response: Withdraws to Pain [place] Coma Scale total score: 12 Psychiatry oriented to self, but otherwise not oriented. Skin erythema left pretibial area, no lesions or edema. this area is warm. Sepsis Event Note (H) Evaluation Current Stage of Sepsis: Sepsis Possible source of Sepsis: positive Pulmonary Sepsis Criteria Sepsis Criteria: Recorded Temperature greater than 38.3C or Less than 36C, Recorded Respiratory Rate greater than 20 and RADIO ADJUSTER: altered consciousness (unrelated to primary neuro pathology) Conclusion/Plan Problem List (1) Hypoxia: Plan: Acute hypoxemic respiratory failure. Patient with no history of baseline oxygen use. Came into the ED with COVID symptoms and altered mental status with a known positive COVID test. She was on room air in the emergency department then decompensated overnight. Early this morning ran a fever and had increasing oxygen requirements to 2 L via nasal cannula. She is now being admitted to our service for acute hypoxemic respiratory failure probably secondary to COVID and pulmonary edema. We will also treat her for community-acquired pneumonia she could indeed have underlying pneumonia given the appearance of her chest x-ray. Her home dosing of Lasix 20 mg twice daily has been instituted in the emergency department. I will continue this. (2) COVID: Plan: Positive COVID test at [facility]. When her status worsened this morning respiratory panel was repeated. This is positive for COVID but no other viruses.I have started remdesivir. I have also given her 10 mg of Decadron in the emergency department give her 6 mg of day for 4 additional days. I do not expect her blood sugars to respond positively the to this treatment but we can cover her with insulin as needed. (3) CHF exacerbation: Plan: Pulmonary edema noted on chest x-ray. Diminished breath sounds noted on physical exam. She does not have any significant pedal edema but I have a feeling this patient does not get out of bed very frequently. I have no information as to her baseline level of function at this time. I will treat her with Lasix 40 mg now and then Lasix 20 mg twice a day. I will monitor her renal function and her potassium. I have ordered BMP for the a.m. (4) CAP (community acquired pneumonia): Plan: I have reviewed both chest x-rays which were taken in the emergency department. There is definitely pattern of pulmonary edema. Cannot rule out small infiltrate and therefore we will treat her for community-acquired pneumonia. She is day 1 of 3 azithromycin day 1 of 5 Rocephin. These antibiotics were started in the emergency department. (5) Type 2 diabetes mellitus with diabetic polyneuropathy: Plan: History of diabetes mellitus. She is normally on Lantus insulin 22 units in the evening and 40 units in the morning in addition she is on a sliding scale dose 3 times daily. She is not eating and drinking well at this time, therefore I will reduce her to 10 units of Lantus at bedtime with sliding scale and we will see how her blood sugars respond. (6) Hypothyroidism, unspecified: Plan: I will continue her home Synthroid. (7) Trigger finger: Plan: She is status post left fourth trigger finger release by Dr. Lo on 11/15/2024. She has a dressing in place. The wound appears to be healing well without any evidence of infection. Plan I have spent 90 minutes in the care of this patient today. This includes time [id number], review and ordering of diagnostic imaging and laboratory studies and consultation with other providers.I have gained additional history from her son Cesar who is her surrogate decision maker. He has been in an additional historian regarding his mother's baseline level of function and previous status prior to this illness. Monitoring the patient's signs symptoms, evaluation of medication effectiveness and patient's response to treatment. Lab Results Lab results reviewed: Yes 11/30/24 12:38 11/30/24 12:38 Core Measures Anticipated LOS I expect patient to be DC'd or transferred within 96 hours.: Yes Issues Hospital Issues and Management Plan: Acute hypoxemic respiratory failure of multifactorial etiology: CHF exacerbation, COVID infection, possible community-acquired pneumonia with signs of sepsis to include fever, altered mental status, hypoxemia and elevated respiratory rate. Discussion this evening with her son Cesar who is her surrogate medical decision maker. He thinks that she has a POLST on file but he has not seen it. He is certain that she would like DNR status. I am admitting this patient inpatient status as I believe she will need to be here greater than 2 midnights. DVT/VTE - Prophylaxis VTE/DVT Device ordered at admit?: Yes VTE/DVT Prophylaxis med ordered at admit?: Yes
[2024-11-30 12:46] LABS: BASOPHILS # (AUTO) 0.1 10^3/uL (0.0-0.1); BASOPHILS % (AUTO) 0.6 %; HCT - HEMATOCRIT 47.9 % (37.0-47.0); HGB - HEMOGLOBIN 15.1 g/dL (12.0-16.0); LYMPHOCYTES # (AUTO) 1.2 10^3/uL (1.5-3.5); LYMPHOCYTES % (AUTO) 10.9 %; MEAN CORPUSCULAR HEMOGLOBIN 28.8 pg (27.0-31.0); MEAN CORPUSCULAR HGB CONC 31.5 g/dL (32.0-36.0); MEAN CORPUSCULAR VOLUME 91.4 fL (81.0-99.0); MEAN PLATELET VOLUME 11.2 fL (7.9-10.8); MONOCYTES # (AUTO) 0.7 10^3/uL (0.0-1.0); MONOCYTES % (AUTO) 6.5 %; NEUTROPHILS # (AUTO) 8.5 10^3/uL (1.5-6.6); NEUTROPHILS % (AUTO) 81.1 %; PLT - PLATELET COUNT 186 10^3/uL (130-450); RED BLOOD COUNT 5.24 10^6/uL (4.20-5.40); WHITE BLOOD COUNT 10.5 x10^3/uL (4.8-10.8)
[2024-11-30 13:01] LABS: ALBUMIN 3.7 g/dL (3.2-5.5); ALBUMIN/GLOBULIN RATIO 1.3 (1.0-2.2); CALCIUM 8.9 mg/dL (8.5-10.3); CREATININE 1.2 mg/dL (0.6-1.3); POTASSIUM 4.3 mmol/L (3.5-4.5); TOTAL PROTEIN 6.6 g/dL (6.4-8.9)
[2024-11-30] MEDS: AZITHROMYCIN INJ 500 MG in SODIUM CHLORIDE 0.9% 250 ML IV STA (13:02)
[2024-11-30] MEDS: cefTRIAXone 2 GM VIAL IVP STA (13:02)
[2024-11-30] MEDS ORDERED: guaiFENesin 600 MG TABLET PO PRN (13:50)
[2024-11-30] MEDS ORDERED: oxyCODONE 5 MG TABLET PO PRN (13:50)
[2024-11-30] MEDS ORDERED: ACETAMINOPHEN 325 MG TABLET PO PRN (13:50)
[2024-11-30] MEDS ORDERED: ONDANSETRON ODT 4 MG TABLET TL PRN (13:50)
[2024-11-30] MEDS ORDERED: DICLOFENAC SODIUM 1% GEL 50 GM TUBE TOP PRN (13:50)
[2024-11-30] MEDS: LACTATED RINGERS 1,000 ML IV SCH (14:46)
[2024-11-30] MEDS: SODIUM CHLORIDE FLUSH 0.9% 10 ML SYRINGE IVP PRN (14:48)
[2024-11-30] MEDS: DEXAMETHASONE 10 MG/ML VIAL IVP ONE (14:59)
[2024-11-30] MEDS: REMDESIVIR 200 MG in SODIUM CHLORIDE 0.9% 250 ML IV ONE (15:51)
[2024-11-30] MEDS: SODIUM CHLORIDE FLUSH 0.9% 10 ML SYRINGE IVP SCH (15:53)
[2024-11-30] MEDS: ARIPiprazole 5 MG TABLET PO SCH (20:28)
[2024-11-30] MEDS: NYSTATIN POWDER 15 GM TOP SCH (20:32)
[2024-11-30] MEDS: FUROSEMIDE 40 MG/4 ML VIAL IVP ONE (20:32)
[2024-11-30] MEDS: HEPARIN 5,000 UNIT/ML VIAL SUBQ SCH (20:37)
[2024-11-30] MEDS: INSULIN LISPRO 300 UNIT/3 ML PEN SUBQ SCH (20:44)
[2024-11-30 22:07] LABS: BILIRUBIN,URINE NEGATIVE (NEGATIVE); GLUCOSE, URINE (UA) >=1000 mg/dL (NEGATIVE); KETONES,URINE (UA) 15 mg/dL (NEGATIVE); LEUKOCYTE ESTERASE, URINE MODERATE (NEGATIVE); NITRITE,URINE NEGATIVE (NEGATIVE); OCCULT BLOOD,URINE MODERATE (NEGATIVE); PH,URINE 6.5 PH (5.0-7.5); PROTEIN,URINE TRACE mg/dL (NEGATIVE); UROBILINOGEN,URINE 0.2 (NORMAL) E.U./dL (NORMAL)
[2024-11-30 22:22] LABS: CLARITY,URINE HAZY (CLEAR)
[2024-11-30 22:23] LABS: AMORPHOUS SEDIMENT,UR Few /LPF; BACTERIA,URINE Many /HPF (None Seen); SQUAMOUS EPITHELIAL CELL,UR FEW Squamous (<= Few); YEAST,URINE PRESENT
--- NOTE | 2024-12-01 02:49 | PROVIDER PROGRESS NOTE ---
Graphotype Operator Note Graphotype Operator Note Graphotype Operator Note: per rn "Pt in for covid 19 and acute hypoxic respiratory failure. Pt tripped sepsis risk with 22 respirations/minute, heart rate 105, and change in mental status currently obtunded responsive to pain. MD previously notified." check cbc, cmp, mag, lactate, cxr, ct head, ua neuro checks
[2024-12-01 03:09] LABS: BASOPHILS % (AUTO) 0.3 %; HCT - HEMATOCRIT 50.8 % (37.0-47.0); LYMPHOCYTES # (AUTO) 1.2 10^3/uL (1.5-3.5); LYMPHOCYTES % (AUTO) 10.8 %; MEAN CORPUSCULAR HEMOGLOBIN 28.9 pg (27.0-31.0); MEAN CORPUSCULAR HGB CONC 31.5 g/dL (32.0-36.0); MEAN CORPUSCULAR VOLUME 91.7 fL (81.0-99.0); MEAN PLATELET VOLUME 11.1 fL (7.9-10.8); MONOCYTES # (AUTO) 0.7 10^3/uL (0.0-1.0); MONOCYTES % (AUTO) 6.8 %; NEUTROPHILS # (AUTO) 8.8 10^3/uL (1.5-6.6); NEUTROPHILS % (AUTO) 81.1 %; PLT - PLATELET COUNT 202 10^3/uL (130-450); RED BLOOD COUNT 5.54 10^6/uL (4.20-5.40); RED CELL DISTRIBUTION WIDTH 14.1 % (12.0-15.0); WHITE BLOOD COUNT 10.8 x10^3/uL (4.8-10.8)
[2024-12-01 03:17] LABS: MAGNESIUM 2.4 mg/dL (1.7-2.3)
[2024-12-01 03:23] LABS: ALBUMIN 3.6 g/dL (3.2-5.5); ALBUMIN/GLOBULIN RATIO 1.2 (1.0-2.2); BILIRUBIN,TOTAL 0.7 mg/dL (0.2-1.0); CALCIUM 8.9 mg/dL (8.5-10.3); CREATININE 1.3 mg/dL (0.6-1.3); TOTAL PROTEIN 6.5 g/dL (6.4-8.9)
[2024-12-01] MEDS: FUROSEMIDE 20 MG/2 ML VIAL IVP SCH (06:09)
[2024-12-01 06:55] LABS: BILIRUBIN,URINE NEGATIVE (NEGATIVE); GLUCOSE, URINE (UA) >=1000 mg/dL (NEGATIVE); KETONES,URINE (UA) 15 mg/dL (NEGATIVE); LEUKOCYTE ESTERASE, URINE SMALL (NEGATIVE); NITRITE,URINE NEGATIVE (NEGATIVE); OCCULT BLOOD,URINE MODERATE (NEGATIVE); PROTEIN,URINE 30 mg/dL (NEGATIVE); UROBILINOGEN,URINE 0.2 (NORMAL) E.U./dL (NORMAL)
[2024-12-01 07:17] LABS: CLARITY,URINE SL. CLOUDY (CLEAR)
[2024-12-01 07:36] LABS: WBC,URINE >25 /HPF (0-5)
[2024-12-01 07:37] LABS: BACTERIA,URINE Few /HPF (None Seen); SQUAMOUS EPITHELIAL CELL,UR FEW Squamous (<= Few); YEAST,URINE PRESENT
--- NOTE | 2024-12-01 08:02 | CT Report ---
PROCEDURE: CT Head WO INDICATIONS: ams TECHNIQUE: Noncontrast 4.5 mm thick angled axial sections acquired from the foramen magnum to the vertex. For r adiation dose reduction, the following was used: automated exposure control, adjustment of mA and/or kV according to patient size. COMPARISON: None. FINDINGS: Image quality: Excellent. CSF spaces: Basal cisterns are patent. No extra-axial fluid collections. Ventricles are normal in size and shape. Brain: No midline shift. No intracranial masses or hemorrhage. Padilla-white matter interface is norm al. Intracranial carotid calcifications. Age-related volume loss and small vessel ischemic change. Skull and face: Calvarium and visualized facial bones are intact, without suspicious lesions. Sinuses: Visualized sinuses and mastoids are clear. IMPRESSION: No acute intracranial pathology. Findings are concordant with preliminary interpretation provided by [facility]. Reviewed by: David Erickson MD on 12/01/2024 8:01 AM PST Approved by: David Erickson MD on 12/01/2024 8:01 AM PST Station ID: [id number]
[2024-12-01] MEDS: ASPIRIN CHEW 81 MG TABLET PO SCH (08:17)
[2024-12-01] MEDS: dexAMETHasone 4 MG TABLET PO SCH (08:19)
[2024-12-01] MEDS: cefTRIAXone 1 GM in SODIUM CHLORIDE 0.9% MINIBAG 100 ML IV SCH (09:46)
[2024-12-01] MEDS ORDERED: SODIUM CHLORIDE 0.9% 100ML 100 ML IV ONE ×3 (10:21→11:02)
--- NOTE | 2024-12-01 10:23 | PROVIDER PROGRESS NOTE ---
Subjective Prog Note Date Prog Note Date: 12/01/24 Subjective Subjective: She is not responsive this AM. Overnight had workup via telemedicine which was negative for any new findings. Current Medications Current Medications Current Medications: Current Medications Generic Name Dose Route Start Last Admin Trade Name Freprince PRN Reason Stop Dose Admin Acetaminophen 650 mg 11/29/24 13:00 12/01/24 08:16 Acetaminophen 325 Mg Tablet PO Not Given QID DAVIS Acetaminophen 650 mg 11/30/24 13:50 Acetaminophen 325 Mg Tablet PO Q4HR PRN Pain 1 to 4, or Fever Albuterol 2 puffs 11/29/24 13:00 12/01/24 09:58 Albuterol 1 Puff INH Not Given QID DAVIS Amlodipine Besylate 10 mg 11/30/24 09:00 12/01/24 08:17 Amlodipine 5 Mg Tablet PO Not Given DAILY DAVIS Aripiprazole 2.5 mg 11/30/24 21:00 11/30/24 20:28 Aripiprazole 5 Mg Tablet PO 2.5 mg QPM DAVIS Administration Aspirin 81 mg 12/01/24 09:00 12/01/24 08:17 Aspirin Chew 81 Mg Tablet PO Not Given DAILY DAVIS Atorvastatin Calcium 10 mg 11/29/24 21:00 11/30/24 20:29 Atorvastatin 10 Mg Tablet PO 10 mg QPM DAVIS Administration Bupropion HCl 150 mg 11/30/24 09:00 12/01/24 08:18 Bupropion Xl 150 Mg Tablet PO Not Given DAILY DAVIS Buspirone HCl 5 mg 11/29/24 21:00 12/01/24 08:18 Buspirone 5 Mg Tablet PO Not Given BID DAVIS Dexamethasone 6 mg 12/01/24 09:00 12/01/24 08:19 Dexamethasone 4 Mg Tablet PO 12/04/24 09:01 Not Given DAILY DAVIS Diclofenac Sodium 4 gm 11/30/24 13:50 Diclofenac Sodium 1% Gel 50 Gm Tube TOP QID PRN pain Donepezil HCl 5 mg 11/29/24 21:00 11/30/24 20:29 Donepezil 5 Mg Tablet PO 5 mg QPM DAVIS Administration Duloxetine HCl 30 mg 11/30/24 09:00 12/01/24 08:19 Duloxetine 30 Mg Capsule PO Not Given DAILY DAVIS Furosemide 20 mg 12/01/24 06:00 12/01/24 06:09 Furosemide 20 Mg/2 Ml Vial IVP 20 mg BIDDIURETIC DAVIS Administration Guaifenesin 600 mg 11/30/24 13:50 Guaifenesin 600 Mg Tablet PO BID PRN cough Heparin Sodium (Porcine) 5,000 unit 11/30/24 21:00 12/01/24 10:02 Heparin 5,000 Unit/Ml Vial SUBQ 5,000 unit BID DAVIS Administration Remdesivir 100 mg/ Sodium 100 mls @ 200 mls/hr 12/01/24 09:00 Chloride IV 12/04/24 09:29 DAILY DAVIS Ceftriaxone Sodium 1 gm/ 100 mls @ 200 mls/hr 12/01/24 09:00 12/01/24 09:46 Sodium Chloride IV 12/04/24 09:29 200 mls/hr DAILY DAVIS Administration Azithromycin 500 mg/ Sodium 250 mls @ 250 mls/hr 12/01/24 09:00 Chloride IV 12/02/24 09:59 DAILY DAVIS Insulin Glargine-yfgn 10 unit 11/30/24 21:00 11/30/24 20:37 Insulin Glargine-Yfgn 300 Unit/3 Ml Pen SUBQ 10 unit QPM DAVIS Administration Insulin Human Lispro 1 - 5 unit 11/30/24 21:00 12/01/24 09:06 Insulin Lispro 300 Unit/3 Ml Pen SUBQ 3 unit 0800,1200,1700,2100 DAVIS Administration Protocol Levothyroxine Sodium 100 mcg 11/30/24 07:00 12/01/24 06:09 Levothyroxine 100 Mcg Tablet PO Not Given QDAC DAVIS Levothyroxine Sodium 75 mcg 11/30/24 07:00 12/01/24 06:09 Levothyroxine 75 Mcg Tablet PO Not Given QDAC [facility] Lisinopril 30 mg 11/30/24 09:00 12/01/24 08:19 Lisinopril 5 Mg Tablet PO Not Given DAILY [facility] Mirtazapine 15 mg 11/29/24 21:00 11/30/24 20:29 Mirtazapine 15 Mg Tablet PO 15 mg QPM DAVIS Administration Nystatin 1 applic 11/30/24 21:00 12/01/24 10:04 Nystatin Powder 15 Gm TOP 1 applic BID DAVIS Administration Ondansetron HCl 4 mg 11/30/24 13:50 Ondansetron Odt 4 Mg Tablet TL Q6HR PRN Nausea / Vomiting Oxycodone HCl 5 mg 11/30/24 13:50 Oxycodone 5 Mg Tablet PO Q4HR PRN Pain 8 to 10 Empagliflozin [ 1 each 12/01/24 09:00 12/01/24 08:19 Jardiance] 10 Mg PO Not Given Tablet) DAILY [facility] Potassium Chloride 20 meq 11/30/24 08:00 12/01/24 08:16 Potassium Chloride 20 Meq Tablet PO Not Given BIDWM [facility] Pregabalin 150 mg 11/29/24 21:00 12/01/24 10:05 Pregabalin 25 Mg Capsule PO Not Given BID DAVIS Risperidone 1 mg 11/29/24 21:00 11/30/24 20:29 Risperidone 1 Mg Tablet PO 1 mg QPM DAVIS Administration Sodium Chloride 10 ml 11/30/24 13:50 11/30/24 14:48 Sodium Chloride Flush 0.9% 10 Ml Syringe IVP 10 ml PRN PRN Administration NEEDED PER PROVIDER ORDERS Sodium Chloride 10 ml 11/30/24 17:00 12/01/24 09:57 Sodium Chloride Flush 0.9% 10 Ml Syringe IVP 10 ml 0100,0900,1700 DAVIS Administration Objective Vital Signs/Intake & Output Vital Signs: Vital Signs x48h Temp Pulse Resp BP Pulse Ox O2 Flow Rate 12/01/24 07:57 36.9 C 108 H 29 H 127/49 L 93 3 Intake & Output: Intake & Output 11/28/24 11/29/24 11/30/24 12/01/24 23:59 23:59 23:59 23:59 Intake Total 500 / 500 700 / 700 1050 / 1050 Output Total 1100 / 1100 2350 / 2350 Balance 500 / 500 -400 / -400 -1300 / -1300 Weight (kg) 125.4 kg 124.5 kg 118 kg Lab Results 12/01/24 15:18 12/01/24 15:18 Other Labs: Lab Results x24hrs 12/01/24 12/01/24 12/01/24 Range/Units 08:26 06:15 03:00 WBC 10.8 (4.8-10.8) x10^3/uL RBC 5.54 H (4.20-5.40) 10^6/uL Hgb 16.0 (12.0-16.0) g/dL Hct 50.8 H (37.0-47.0) % MCV 91.7 (81.0-99.0) fL MCH 28.9 (27.0-31.0) pg MCHC 31.5 L (32.0-36.0) g/dL RDW 14.1 (12.0-15.0) % Plt Count 202 (130-450) 10^3/uL MPV 11.1 H (7.9-10.8) fL Neut # (Auto) 8.8 H (1.5-6.6) 10^3/uL Lymph # (Auto) 1.2 L (1.5-3.5) 10^3/uL Cole # (Auto) 0.7 (0.0-1.0) 10^3/uL Eos # (Auto) 0.0 (0.0-0.7) 10^3/uL Baso # (Auto) 0.0 (0.0-0.1) 10^3/uL Absolute Nucleated RBC 0.00 x10^3/uL Nucleated RBC % 0.0 /100WBC Sodium 151 H (135-145) mmol/L Potassium 4.0 (3.5-4.5) mmol/L Chloride 116 H (101-111) mmol/L Carbon Dioxide 23 (21-32) mmol/L Anion Gap 12.0 (6-13) BUN 43 H (6-20) mg/dL Creatinine 1.3 (0.6-1.3) mg/dL Estimated GFR (MDRD) 39 L (>89) Glucose 261 H (74-104) mg/dL POC Whole Bld Glucose 271 (70-100) mg/dL Lactic Acid 1.1 (0.5-2.2) mmol/L Calcium 8.9 (8.5-10.3) mg/dL Magnesium 2.4 H (1.7-2.3) mg/dL Total Bilirubin 0.7 (0.2-1.0) mg/dL AST 31 (10-42) IU/L ALT 19 (10-60) IU/L Alkaline Phosphatase 85 (42-121) IU/L Total Protein 6.5 (6.4-8.9) g/dL Albumin 3.6 (3.2-5.5) g/dL Globulin 2.9 (2.1-4.2) g/dL Albumin/Globulin Ratio 1.2 (1.0-2.2) Urine Color YELLOW Urine Clarity SL. CLOUDY (CLEAR) Urine pH 6.0 (5.0-7.5) PH Ur Specific [place] 1.020 (1.002-1.030) Urine Protein 30 H (NEGATIVE) mg/dL Urine Glucose (UA) >=1000 H (NEGATIVE) mg/dL Urine Ketones 15 H (NEGATIVE) mg/dL Urine Occult Blood MODERATE H (NEGATIVE) Urine Nitrite NEGATIVE (NEGATIVE) Urine Bilirubin NEGATIVE (NEGATIVE) Urine Urobilinogen 0.2 (NORMAL) (NORMAL) E.U./dL Ur Leukocyte Esterase SMALL H (NEGATIVE) Urine RBC 11-25 H (0-5) /HPF Urine WBC >25 H (0-5) /HPF Ur Squamous Epith Cells FEW Squamous (<= Few) Amorphous Sediment /LPF Urine Bacteria Few (None Seen) /HPF Urine Yeast PRESENT Urine Culture Comments INDICATED Nasal Adenovirus (PCR) Nasal B. parapertussis DNA (PCR) Nasal Coronavir 229E PCR Nasal Coronavir HKU1 PCR Nasal Coronavir NL63 PCR Nasal Coronavir OC43 PCR Nasal Enterovir/Rhinovir PCR Nasal Influenza B PCR Nasal Influenza A PCR Nasal Parainfluen 1 PCR Nasal Parainfluen 2 PCR Nasal Parainfluen 3 PCR Nasal Parainfluen 4 PCR Nasal RSV (PCR) Nasal B.pertussis DNA PCR Nasal C.pneumoniae (PCR) Charan Human Metapneumo PCR Nasal M.pneumoniae (PCR) Nasal SARS-CoV-2 (PCR) 11/30/24 11/30/24 11/30/24 Range/Units 21:50 20:40 16:42 WBC (4.8-10.8) x10^3/uL RBC (4.20-5.40) 10^6/uL Hgb (12.0-16.0) g/dL Hct (37.0-47.0) % MCV (81.0-99.0) fL MCH (27.0-31.0) pg MCHC (32.0-36.0) g/dL RDW (12.0-15.0) % Plt Count (130-450) 10^3/uL MPV (7.9-10.8) fL Neut # (Auto) (1.5-6.6) 10^3/uL Lymph # (Auto) (1.5-3.5) 10^3/uL Cole # (Auto) (0.0-1.0) 10^3/uL Eos # (Auto) (0.0-0.7) 10^3/uL Baso # (Auto) (0.0-0.1) 10^3/uL Absolute Nucleated RBC x10^3/uL Nucleated RBC % /100WBC Sodium (135-145) mmol/L Potassium (3.5-4.5) mmol/L Chloride (101-111) mmol/L Carbon Dioxide (21-32) mmol/L Anion Gap (6-13) BUN (6-20) mg/dL Creatinine (0.6-1.3) mg/dL Estimated GFR (MDRD) (>89) Glucose (74-104) mg/dL POC Whole Bld Glucose 212 213 (70-100) mg/dL Lactic Acid (0.5-2.2) mmol/L Calcium (8.5-10.3) mg/dL Magnesium (1.7-2.3) mg/dL Total Bilirubin (0.2-1.0) mg/dL AST (10-42) IU/L ALT (10-60) IU/L Alkaline Phosphatase (42-121) IU/L Total Protein (6.4-8.9) g/dL Albumin (3.2-5.5) g/dL Globulin (2.1-4.2) g/dL Albumin/Globulin Ratio (1.0-2.2) Urine Color YELLOW Urine Clarity HAZY (CLEAR) Urine pH 6.5 (5.0-7.5) PH Ur Specific [place] 1.015 (1.002-1.030) Urine Protein TRACE (NEGATIVE) mg/dL Urine Glucose (UA) >=1000 H (NEGATIVE) mg/dL Urine Ketones 15 H (NEGATIVE) mg/dL Urine Occult Blood MODERATE H (NEGATIVE) Urine Nitrite NEGATIVE (NEGATIVE) Urine Bilirubin NEGATIVE (NEGATIVE) Urine Urobilinogen 0.2 (NORMAL) (NORMAL) E.U./dL Ur Leukocyte Esterase MODERATE H (NEGATIVE) Urine RBC 6-10 H (0-5) /HPF Urine WBC 11-25 H (0-5) /HPF Ur Squamous Epith Cells FEW Squamous (<= Few) Amorphous Sediment Few /LPF Urine Bacteria Many H (None Seen) /HPF Urine Yeast PRESENT Urine Culture Comments INDICATED Nasal Adenovirus (PCR) Nasal B. parapertussis DNA (PCR) Nasal Coronavir 229E PCR Nasal Coronavir HKU1 PCR Nasal Coronavir NL63 PCR Nasal Coronavir OC43 PCR Nasal Enterovir/Rhinovir PCR Nasal Influenza B PCR Nasal Influenza A PCR Nasal Parainfluen 1 PCR Nasal Parainfluen 2 PCR Nasal Parainfluen 3 PCR Nasal Parainfluen 4 PCR Nasal RSV (PCR) Nasal B.pertussis DNA PCR Nasal C.pneumoniae (PCR) Charan Human Metapneumo PCR Nasal M.pneumoniae (PCR) Nasal SARS-CoV-2 (PCR) 11/30/24 11/30/24 Range/Units 12:38 10:20 WBC 10.5 (4.8-10.8) x10^3/uL RBC 5.24 (4.20-5.40) 10^6/uL Hgb 15.1 (12.0-16.0) g/dL Hct 47.9 H (37.0-47.0) % MCV 91.4 (81.0-99.0) fL MCH 28.8 (27.0-31.0) pg MCHC 31.5 L (32.0-36.0) g/dL RDW 14.0 (12.0-15.0) % Plt Count 186 (130-450) 10^3/uL MPV 11.2 H (7.9-10.8) fL Neut # (Auto) 8.5 H (1.5-6.6) 10^3/uL Lymph # (Auto) 1.2 L (1.5-3.5) 10^3/uL Cole # (Auto) 0.7 (0.0-1.0) 10^3/uL Eos # (Auto) 0.0 (0.0-0.7) 10^3/uL Baso # (Auto) 0.1 (0.0-0.1) 10^3/uL Absolute Nucleated RBC 0.00 x10^3/uL Nucleated RBC % 0.0 /100WBC Sodium 146 H (135-145) mmol/L Potassium 4.3 (3.5-4.5) mmol/L Chloride 113 H (101-111) mmol/L Carbon Dioxide 23 (21-32) mmol/L Anion Gap 10.0 (6-13) BUN 38 H (6-20) mg/dL Creatinine 1.2 (0.6-1.3) mg/dL Estimated GFR (MDRD) 43 L (>89) Glucose 235 H (74-104) mg/dL POC Whole Bld Glucose (70-100) mg/dL Lactic Acid (0.5-2.2) mmol/L Calcium 8.9 (8.5-10.3) mg/dL Magnesium (1.7-2.3) mg/dL Total Bilirubin 1.0 (0.2-1.0) mg/dL AST 26 (10-42) IU/L ALT 21 (10-60) IU/L Alkaline Phosphatase 85 (42-121) IU/L Total Protein 6.6 (6.4-8.9) g/dL Albumin 3.7 (3.2-5.5) g/dL Globulin 2.9 (2.1-4.2) g/dL Albumin/Globulin Ratio 1.3 (1.0-2.2) Urine Color Urine Clarity (CLEAR) Urine pH (5.0-7.5) PH Ur Specific [place] (1.002-1.030) Urine Protein (NEGATIVE) mg/dL Urine Glucose (UA) (NEGATIVE) mg/dL Urine Ketones (NEGATIVE) mg/dL Urine Occult Blood (NEGATIVE) Urine Nitrite (NEGATIVE) Urine Bilirubin (NEGATIVE) Urine Urobilinogen (NORMAL) E.U./dL Ur Leukocyte Esterase (NEGATIVE) Urine RBC (0-5) /HPF Urine WBC (0-5) /HPF Ur Squamous Epith Cells (<= Few) Amorphous Sediment /LPF Urine Bacteria (None Seen) /HPF Urine Yeast Urine Culture Comments Nasal Adenovirus (PCR) NOT DETECTED Nasal B. parapertussis DNA (PCR) NOT DETECTED Nasal Coronavir 229E PCR NOT DETECTED Nasal Coronavir HKU1 PCR NOT DETECTED Nasal Coronavir NL63 PCR NOT DETECTED Nasal Coronavir OC43 PCR NOT DETECTED Nasal Enterovir/Rhinovir PCR NOT DETECTED Nasal Influenza B PCR NOT DETECTED Nasal Influenza A PCR NOT DETECTED Nasal Parainfluen 1 PCR NOT DETECTED Nasal Parainfluen 2 PCR NOT DETECTED Nasal Parainfluen 3 PCR NOT DETECTED Nasal Parainfluen 4 PCR NOT DETECTED Nasal RSV (PCR) NOT DETECTED Nasal B.pertussis DNA PCR NOT DETECTED Nasal C.pneumoniae (PCR) NOT DETECTED Charan Human Metapneumo PCR NOT DETECTED Nasal M.pneumoniae (PCR) NOT DETECTED Nasal SARS-CoV-2 (PCR) DETECTED A Sepsis Event Note (H) Evaluation Current Stage of Sepsis: Sepsis Possible source of Sepsis: positive Pulmonary Sepsis Criteria Sepsis Criteria: Recorded Temperature greater than 38.3C or Less than 36C, Recorded Respiratory Rate greater than 20 and FLOORS BUFFER: altered consciousness (unrelated to primary neuro pathology) Assessment/Plan Problem List (1) Hypoxia: Impression: 12/01/2024.Her hypoxia remains unchanged. She continues to have oxygen saturation in the low 90s with a flow rate of 3 L/min. She does not appear any more uncomfortable. She is more tachypneic today with a rate in the 30s. She is also developing some tachycardia. She is hypertensive. On admit:Acute hypoxemic respiratory failure. Patient with no history of baseline oxygen use. Came into the ED with COVID symptoms and altered mental status with a known positive COVID test. She was on room air in the emergency department then decompensated overnight. Early this morning ran a fever and had increasing oxygen requirements to 2 L via nasal cannula. She is now being admitted to our service for acute hypoxemic respiratory failure probably secondary to COVID and pulmonary edema. We will also treat her for community-acquired pneumonia she could indeed have underlying pneumonia given the appearance of her chest x-ray. Her home dosing of Lasix 20 mg twice daily has been instituted in the emergency department. I will continue this. (2) COVID: Impression: [facility] COVID [facility]. When her status worsened respiratory panel was repeated. This is positive for COVID but no other viruses.I have started remdesivir. I have also given her 10 mg of Decadron in the emergency department give her 6 mg of day for 4 additional days. I do not expect her blood sugars to respond positively the to this treatment but we can cover her with insulin as needed. We will continue treatment for COVID. (3) CHF exacerbation: Impression: Pulmonary edema on initial chest x-ray with diminished breath sounds on physical exam. Had a chest x-ray overnight which to me looks more clear. She does not have pedal edema however I believe she is likely been in bed for several days prior to presentation to the hospital and she is wheelchair-bound at baseline. Today with rising H&H and rising sodium I believe she is probably a bit dry. She continues to have reasonable urine output and she has not had any rise in her creatinine. If bed weights are reliable she has gone from 124 kg on admit 118 kg. Her initial 24 hours in the hospital show fluid deficit of 400 and mL however part of this was in the emergency department. Most recent 24-hour show fluid deficit of 2 L. (4) CAP (community acquired pneumonia): Impression: She is day 2/3 azithromycin and day 2/5 rocephin. given the severity of her illness, I think that continuing to treat for CAP is the most prudent course. (5) Type 2 diabetes mellitus with diabetic polyneuropathy: Impression: Selected Entries 11/30/24 21:00 12/01/24 08:00 12/01/24 12:00 Result (mg/dL) 212 271 266 continue SSI. (6) Hypothyroidism, unspecified: Impression: resume synthroid when able to take po (7) Dehydration: Impression: She has fluid overload on her initial chest xr, however today she appears dehydrated She has elevated Na, at 151, her h/h is increasing, he MM appear dry and she is not taking in fluids. She has not been awake enough. She is receiving antivirals and antimicrobials for her infection, but seems to not be responding to these. She is tachycardic (120) and hypertensive. I have obtained EKG that shows sinus rhythm. Urine specimen has culture pending, but is likely contaminated. Overnight her lactate was negative. I am adding on a procalcitonin and BNP to further guide therapy towards either escalation of anti infectives vs diuresis. Procal did not indicate infection, nor did repeat lactate. I have given her a one liter bolus ,and have started D5W at 100cc an hour. I am checking Na again at 2100. I have spent 55 minutes in the care of this patient today. This includes time [id number], review and ordering of diagnostic imaging and laboratory studies.. Monitoring the patient's signs symptoms, evaluation of medication effectiveness and patient's response to treatment. (8) Trigger finger: Impression: incision healing well.
[2024-12-01] MEDS ORDERED: ALBUTEROL 1 PUFF INH PRN (10:30)
[2024-12-01] MEDS: AZITHROMYCIN INJ 500 MG in SODIUM CHLORIDE 0.9% 250 ML IV SCH (10:59)
--- NOTE | 2024-12-01 11:06 | XRAY Report ---
PROCEDURE: XR Chest 1V INDICATIONS: pna, sepsis TECHNIQUE: One view of the chest was acquired. COMPARISON: Chest x-ray 11/30/2024 FINDINGS: Surgical changes and devices: None. Lungs and pleura: Streaky opacity within the right base. Increased pulmonary vascularity appear Mediastinum: Mediastinal contours appear normal. Heart size is normal. Bones and chest wall: No suspicious bony lesions. Overlying soft tissues appear unremarkable. IMPRESSION: Streaky right basilar opacity possibly representing atelectasis/developing airspace disease. Persiste nt increased vascularity consistent with edema. The above findings are concordant with preliminary report. Reviewed by: Kylie cMintyre MD on 12/01/2024 11:05 AM [facility] Approved by: Kylie Mcintyre MD on 12/01/2024 11:05 AM [facility] Station ID: [id number]
[2024-12-01 11:16] LABS: ESTIMATED AVERAGE GLUCOSE 220 mg/dL (70-100); HEMOGLOBIN A1c% 9.3 % (4.27-6.07)
[2024-12-01] MEDS: REMDESIVIR 100 MG in SODIUM CHLORIDE 0.9% 100ML 100 ML IV SCH (12:02)
[2024-12-01] MEDS: SODIUM CHLORIDE 0.9% 500 ML IV ONE (12:45)
[2024-12-01] MEDS: LACTATED RINGERS 1,000 ML IV SCH (13:26)
[2024-12-01 15:27] LABS: BASOPHILS % (AUTO) 0.3 %; HCT - HEMATOCRIT 54.3 % (37.0-47.0); HGB - HEMOGLOBIN 17.1 g/dL (12.0-16.0); LYMPHOCYTES # (AUTO) 1.7 10^3/uL (1.5-3.5); LYMPHOCYTES % (AUTO) 10.8 %; MEAN CORPUSCULAR HEMOGLOBIN 29.1 pg (27.0-31.0); MEAN CORPUSCULAR HGB CONC 31.5 g/dL (32.0-36.0); MEAN CORPUSCULAR VOLUME 92.3 fL (81.0-99.0); MEAN PLATELET VOLUME 11.3 fL (7.9-10.8); MONOCYTES # (AUTO) 1.4 10^3/uL (0.0-1.0); MONOCYTES % (AUTO) 9.4 %; NEUTROPHILS # (AUTO) 12.1 10^3/uL (1.5-6.6); NEUTROPHILS % (AUTO) 78.8 %; PLT - PLATELET COUNT 261 10^3/uL (130-450); RED BLOOD COUNT 5.88 10^6/uL (4.20-5.40); RED CELL DISTRIBUTION WIDTH 14.3 % (12.0-15.0); WHITE BLOOD COUNT 15.3 x10^3/uL (4.8-10.8)
[2024-12-01 15:42] LABS: ALBUMIN 3.7 g/dL (3.2-5.5); ALBUMIN/GLOBULIN RATIO 1.2 (1.0-2.2); BILIRUBIN,TOTAL 0.7 mg/dL (0.2-1.0); CREATININE 1.5 mg/dL (0.6-1.3); POTASSIUM 3.6 mmol/L (3.5-4.5); TOTAL PROTEIN 6.8 g/dL (6.4-8.9)
[2024-12-01] MEDS: DEXTROSE 5% 1,000 ML IV SCH ×2 (16:06→22:19)
[2024-12-01] MEDS: DEXAMETHASONE 4 MG/ML VIAL IVP SCH (18:09)
[2024-12-01] MEDS ORDERED: ZINC OXIDE 20% OINT 30 GM TUBE TOP PRN (18:58)
[2024-12-01] MEDS ORDERED: COD LIVER OIL/ZINC OXIDE 113 GM TUBE TOP PRN (18:58)
[2024-12-02] MEDS ORDERED: INSULIN REGULAR, HUMAN 300 UNIT/3 ML PEN SUBQ SCH
[2024-12-02] MEDS: INSULIN REGULAR, HUMAN 300 UNIT/3 ML PEN SUBQ SCH (02:07)
[2024-12-02 07:58] VITALS: BP 149/79; TEMP 98.1; O2SAT 93
[2024-12-02] MEDS: COD LIVER OIL/ZINC OXIDE 113 GM TUBE TOP SCH (10:27)
[2024-12-02 10:37] LABS: BASOPHILS % (AUTO) 0.3 %; HCT - HEMATOCRIT 57.6 % (37.0-47.0); HGB - HEMOGLOBIN 17.7 g/dL (12.0-16.0); LYMPHOCYTES % (AUTO) 11.5 %; MEAN CORPUSCULAR HEMOGLOBIN 28.6 pg (27.0-31.0); MEAN CORPUSCULAR HGB CONC 30.7 g/dL (32.0-36.0); MEAN CORPUSCULAR VOLUME 93.1 fL (81.0-99.0); MEAN PLATELET VOLUME 11.3 fL (7.9-10.8); MONOCYTES % (AUTO) 11.1 %; NEUTROPHILS % (AUTO) 76.2 %; PLT - PLATELET COUNT 263 10^3/uL (130-450); RED BLOOD COUNT 6.19 10^6/uL (4.20-5.40); RED CELL DISTRIBUTION WIDTH 14.3 % (12.0-15.0)
[2024-12-02 10:50] LABS: SLIDE REVIEW? Indicated
[2024-12-02 10:51] LABS: ABNORMAL LYMPHS % (MANUAL) 0 %
[2024-12-02] MEDS ORDERED: SODIUM CHLORIDE 0.9% 1,000 ML IV SCH (11:00)
[2024-12-02 11:06] LABS: CALCIUM 9.2 mg/dL (8.5-10.3); CREATININE 1.8 mg/dL (0.6-1.3); POTASSIUM 3.9 mmol/L (3.5-4.5)
[2024-12-02 11:25] LABS: BAND NEUTROPHILS % (MANUAL) 3 %; LYMPHOCYTES # (MANUAL) 1.2 10^3/uL (1.5-3.5); LYMPHOCYTES % (MANUAL) 7 %; MONOCYTES # (MANUAL) 1.5 10^3/uL (0.0-1.0); NEUTROPHILS # (MANUAL) 14.3 10^3/uL (1.5-6.6)
[2024-12-02 11:27] LABS: DIFFERENTIAL COMMENT MANUAL DIFFERENTIAL; PLATELET ESTIMATE, MANUAL NORMAL (130-450,000) (NORMAL); PLATELET MORPHOLOGY NORMAL APPEARANCE (NORMAL); RBC MORPHOLOGY (MULTIPLE) NORMAL APPEARANCE (NORMAL); WBC MORPHOLOGY (MULTIPLE) NORMAL APPEARANCE (NORMAL)
[2024-12-02] MEDS: SODIUM CHLORIDE 0.45% 1,000 ML IV SCH (11:47)
[2024-12-02] MEDS ORDERED: REMDESIVIR 100 MG in SODIUM CHLORIDE 0.9% 100ML 100 ML IV SCH (11:54)
--- NOTE | 2024-12-02 12:07 | PROVIDER PROGRESS NOTE ---
Current Medications Current Medications Current Medications: Current Medications Generic Name Dose Route Start Last Admin Trade Name Freq PRN Reason Stop Dose Admin Acetaminophen 650 mg 11/30/24 13:50 Acetaminophen 325 Mg Tablet PO Q4HR PRN Pain 1 to 4, or Fever Albuterol 2 puffs 12/01/24 10:30 Albuterol 1 Puff INH QID PRN Wheezing Amlodipine Besylate 10 mg 11/30/24 09:00 12/02/24 09:51 Amlodipine 5 Mg Tablet PO Not Given DAILY [facility] Aripiprazole 2.5 mg 11/30/24 21:00 12/01/24 19:44 Aripiprazole 5 Mg Tablet PO Not Given QPM [facility] Aspirin 81 mg 12/01/24 09:00 12/02/24 09:51 Aspirin Chew 81 Mg Tablet PO Not Given DAILY [facility] Atorvastatin Calcium 10 mg 11/29/24 21:00 12/01/24 19:44 Atorvastatin 10 Mg Tablet PO Not Given QPM [facility] Bupropion HCl 150 mg 11/30/24 09:00 12/02/24 09:51 Bupropion Xl 150 Mg Tablet PO Not Given DAILY [facility] Buspirone HCl 5 mg 11/29/24 21:00 12/02/24 09:51 Buspirone 5 Mg Tablet PO Not Given BID [facility] Dexamethasone 6 mg 12/01/24 17:38 12/02/24 10:18 Dexamethasone 4 Mg/Ml Vial IVP 6 mg DAILY [facility] Administration Diclofenac Sodium 4 gm 11/30/24 13:50 Diclofenac Sodium 1% Gel 50 Gm Tube TOP QID PRN pain Donepezil HCl 5 mg 11/29/24 21:00 12/01/24 19:44 Donepezil 5 Mg Tablet PO Not Given QPM [facility] Duloxetine HCl 30 mg 11/30/24 09:00 12/02/24 09:51 Duloxetine 30 Mg Capsule PO Not Given DAILY [facility] Guaifenesin 600 mg 11/30/24 13:50 Guaifenesin 600 Mg Tablet PO BID PRN cough Heparin Sodium (Porcine) 5,000 unit 11/30/24 21:00 12/02/24 10:16 Heparin 5,000 Unit/Ml Vial SUBQ 5,000 unit BID [facility] Administration Ceftriaxone Sodium 1 gm/ 100 mls @ 200 mls/hr 12/01/24 09:00 12/02/24 10:58 Sodium Chloride IV 12/04/24 09:29 Infused DAILY [facility] Infusion Sodium Chloride 1,000 mls @ 150 mls/hr 12/02/24 12:00 12/02/24 11:47 Normal Saline 0.45% IV 150 mls/hr .Q6H40M [facility] Administration Remdesivir 100 mg/ Sodium 100 mls @ 200 mls/hr 12/02/24 11:54 Chloride IV 12/04/24 10:29 DAILY@1000 [facility] Insulin Glargine-yfgn 10 unit 11/30/24 21:00 12/01/24 22:18 Insulin Glargine-Yfgn 300 Unit/3 Ml Pen SUBQ 10 unit QPM [facility] Administration Insulin Human Regular 1 - 9 unit 12/02/24 00:00 12/02/24 11:48 Insulin Regular, Human 300 Unit/3 Ml Pen SUBQ 9 unit Q6HR [facility] Administration Protocol Levothyroxine Sodium 100 mcg 11/30/24 07:00 12/02/24 07:45 Levothyroxine 100 Mcg Tablet PO Not Given QDAC [facility] Levothyroxine Sodium 75 mcg 11/30/24 07:00 12/02/24 07:45 Levothyroxine 75 Mcg Tablet PO Not Given QDAC [facility] Lisinopril 30 mg 11/30/24 09:00 12/02/24 09:51 Lisinopril 5 Mg Tablet PO Not Given DAILY [facility] Mirtazapine 15 mg 11/29/24 21:00 12/01/24 19:45 Mirtazapine 15 Mg Tablet PO Not Given QPM [facility] Multi-Ingredient Ointment 1 applic 12/01/24 18:58 Zinc Oxide 20% Oint 30 Gm Tube TOP PRN PRN Skin Care Nystatin 1 applic 11/30/24 21:00 12/02/24 10:01 Nystatin Powder 15 Gm TOP 1 applic BID [facility] Administration Ondansetron HCl 4 mg 11/30/24 13:50 Ondansetron Odt 4 Mg Tablet TL Q6HR PRN Nausea / Vomiting Oxycodone HCl 5 mg 11/30/24 13:50 Oxycodone 5 Mg Tablet PO Q4HR PRN Pain 8 to 10 Empagliflozin [ 1 each 12/01/24 09:00 12/02/24 09:51 Jardiance] 10 Mg PO Not Given Tablet) DAILY [facility] Potassium Chloride 20 meq 11/30/24 08:00 12/02/24 09:51 Potassium Chloride 20 Meq Tablet PO Not Given BIDWM [facility] Pregabalin 150 mg 11/29/24 21:00 12/02/24 09:51 Pregabalin 25 Mg Capsule PO Not Given BID [facility] Risperidone 1 mg 11/29/24 21:00 12/01/24 19:45 Risperidone 1 Mg Tablet PO Not Given QPM [facility] Sodium Chloride 10 ml 11/30/24 13:50 12/01/24 18:07 Sodium Chloride Flush 0.9% 10 Ml Syringe IVP 10 ml PRN PRN Administration NEEDED PER PROVIDER ORDERS Sodium Chloride 10 ml 11/30/24 17:00 12/02/24 10:19 Sodium Chloride Flush 0.9% 10 Ml Syringe IVP 10 ml 0100,0900,1700 [facility] Administration Zinc Oxide 113 gm 12/01/24 18:58 Cod Liver Oil/Zinc Oxide 113 Gm Tube TOP PRN PRN Skin Care Zinc Oxide 1 gm 12/02/24 09:00 12/02/24 10:27 Cod Liver Oil/Zinc Oxide 113 Gm Tube TOP 1 applic BID [facility] Administration Objective Vital Signs/Intake & Output Vital Signs: Vital Signs x48h Temp Pulse Resp BP Pulse Ox O2 Flow Rate 12/02/24 07:57 36.7 C 124 H 22 149/79 H 93 3 12/02/24 07:00 3 Intake & Output: Intake & Output 11/29/24 11/30/24 12/01/24 12/02/24 23:59 23:59 23:59 23:59 Intake Total 500 / 500 700 / 700 2822 / 2822 1578 / 1578 Output Total 1100 / 1100 5100 / 5100 900 / 900 Balance 500 / 500 -400 / -400 -2278 / -2278 678 / 678 Weight (kg) 125.4 kg 124.5 kg 118 kg 115.5 kg Lab Results 12/02/24 10:28 12/02/24 10:28 Other Labs: Lab Results x24hrs 12/02/24 12/02/24 12/02/24 Range/Units 11:18 10:28 06:15 WBC 17.0 H (4.8-10.8) x10^3/uL RBC 6.19 H (4.20-5.40) 10^6/uL Hgb 17.7 H (12.0-16.0) g/dL Hct 57.6 H (37.0-47.0) % MCV 93.1 (81.0-99.0) fL MCH 28.6 (27.0-31.0) pg MCHC 30.7 L (32.0-36.0) g/dL RDW 14.3 (12.0-15.0) % Plt Count 263 (130-450) 10^3/uL MPV 11.3 H (7.9-10.8) fL Neut # (Auto) Not Reportable (1.5-6.6) 10^3/uL Lymph # (Auto) Not Reportable (1.5-3.5) 10^3/uL Hanson # (Auto) Not Reportable (0.0-1.0) 10^3/uL Eos # (Auto) Not Reportable (0.0-0.7) 10^3/uL Baso # (Auto) Not Reportable (0.0-0.1) 10^3/uL Absolute Nucleated RBC Not Reportable x10^3/uL Total Counted 100 Band Neuts % (Manual) 3 (0 - 10) % Abnorm Lymph % (Manual) 0 % Nucleated RBC % Not Reportable /100WBC Neutrophils # (Manual) 14.3 H (1.5-6.6) 10^3/uL Lymphocytes # (Manual) 1.2 L (1.5-3.5) 10^3/uL Monocytes # (Manual) 1.5 H (0.0-1.0) 10^3/uL Eosinophils # (Manual) 0.0 (0-0.7) 10^3/uL Basophils # (Manual) 0.0 (0-0.1) 10^3/uL Differential Comment MANUAL DIFFERENTIAL Manual Slide Review Indicated WBC Morphology NORMAL APPEARANCE (NORMAL) Platelet Estimate NORMAL (130-450,000) (NORMAL) Platelet Morphology NORMAL APPEARANCE (NORMAL) RBC Morph Micro Appear NORMAL APPEARANCE (NORMAL) Sodium 155 H* (135-145) mmol/L Potassium 3.9 (3.5-4.5) mmol/L Chloride 120 H* (101-111) mmol/L Carbon Dioxide 25 (21-32) mmol/L Anion Gap 10.0 (6-13) BUN 56 H (6-20) mg/dL Creatinine 1.8 H (0.6-1.3) mg/dL Estimated GFR (MDRD) 27 L (>89) Glucose 405 H (74-104) mg/dL POC Whole Bld Glucose 346 384 (70-100) mg/dL Lactic Acid (0.5-2.2) mmol/L Calcium 9.2 (8.5-10.3) mg/dL Total Bilirubin (0.2-1.0) mg/dL AST (10-42) IU/L ALT (10-60) IU/L Alkaline Phosphatase (42-121) IU/L B-Natriuretic Peptide (5-100) pg/mL Total Protein (6.4-8.9) g/dL Albumin (3.2-5.5) g/dL Globulin (2.1-4.2) g/dL Albumin/Globulin Ratio (1.0-2.2) Procalcitonin Immunoas (<0.5) ng/mL 12/02/24 12/01/24 12/01/24 Range/Units 00:37 22:16 21:45 WBC (4.8-10.8) x10^3/uL RBC (4.20-5.40) 10^6/uL Hgb (12.0-16.0) g/dL Hct (37.0-47.0) % MCV (81.0-99.0) fL MCH (27.0-31.0) pg MCHC (32.0-36.0) g/dL RDW (12.0-15.0) % Plt Count (130-450) 10^3/uL MPV (7.9-10.8) fL Neut # (Auto) (1.5-6.6) 10^3/uL Lymph # (Auto) (1.5-3.5) 10^3/uL Hanson # (Auto) (0.0-1.0) 10^3/uL Eos # (Auto) (0.0-0.7) 10^3/uL Baso # (Auto) (0.0-0.1) 10^3/uL Absolute Nucleated RBC x10^3/uL Total Counted Band Neuts % (Manual) (0 - 10) % Abnorm Lymph % (Manual) % Nucleated RBC % /100WBC Neutrophils # (Manual) (1.5-6.6) 10^3/uL Lymphocytes # (Manual) (1.5-3.5) 10^3/uL Monocytes # (Manual) (0.0-1.0) 10^3/uL Eosinophils # (Manual) (0-0.7) 10^3/uL Basophils # (Manual) (0-0.1) 10^3/uL Differential Comment Manual Slide Review WBC Morphology (NORMAL) Platelet Estimate (NORMAL) Platelet Morphology (NORMAL) RBC Morph Micro Appear (NORMAL) Sodium 155 H* (135-145) mmol/L Potassium (3.5-4.5) mmol/L Chloride (101-111) mmol/L Carbon Dioxide (21-32) mmol/L Anion Gap (6-13) BUN (6-20) mg/dL Creatinine (0.6-1.3) mg/dL Estimated GFR (MDRD) (>89) Glucose (74-104) mg/dL POC Whole Bld Glucose 489 412 (70-100) mg/dL Lactic Acid (0.5-2.2) mmol/L Calcium (8.5-10.3) mg/dL Total Bilirubin (0.2-1.0) mg/dL AST (10-42) IU/L ALT (10-60) IU/L Alkaline Phosphatase (42-121) IU/L B-Natriuretic Peptide (5-100) pg/mL Total Protein (6.4-8.9) g/dL Albumin (3.2-5.5) g/dL Globulin (2.1-4.2) g/dL Albumin/Globulin Ratio (1.0-2.2) Procalcitonin Immunoas (<0.5) ng/mL 12/01/24 12/01/24 12/01/24 Range/Units 18:06 15:18 12:09 WBC 15.3 H (4.8-10.8) x10^3/uL RBC 5.88 H (4.20-5.40) 10^6/uL Hgb 17.1 H (12.0-16.0) g/dL Hct 54.3 H (37.0-47.0) % MCV 92.3 (81.0-99.0) fL MCH 29.1 (27.0-31.0) pg MCHC 31.5 L (32.0-36.0) g/dL RDW 14.3 (12.0-15.0) % Plt Count 261 (130-450) 10^3/uL MPV 11.3 H (7.9-10.8) fL Neut # (Auto) 12.1 H (1.5-6.6) 10^3/uL Lymph # (Auto) 1.7 (1.5-3.5) 10^3/uL Hanson # (Auto) 1.4 H (0.0-1.0) 10^3/uL Eos # (Auto) 0.0 (0.0-0.7) 10^3/uL Baso # (Auto) 0.0 (0.0-0.1) 10^3/uL Absolute Nucleated RBC 0.00 x10^3/uL Total Counted Band Neuts % (Manual) (0 - 10) % Abnorm Lymph % (Manual) % Nucleated RBC % 0.0 /100WBC Neutrophils # (Manual) (1.5-6.6) 10^3/uL Lymphocytes # (Manual) (1.5-3.5) 10^3/uL Monocytes # (Manual) (0.0-1.0) 10^3/uL Eosinophils # (Manual) (0-0.7) 10^3/uL Basophils # (Manual) (0-0.1) 10^3/uL Differential Comment Manual Slide Review WBC Morphology (NORMAL) Platelet Estimate (NORMAL) Platelet Morphology (NORMAL) RBC Morph Micro Appear (NORMAL) Sodium 156 H* (135-145) mmol/L Potassium 3.6 (3.5-4.5) mmol/L Chloride 119 H (101-111) mmol/L Carbon Dioxide 25 (21-32) mmol/L Anion Gap 12.0 (6-13) BUN 48 H (6-20) mg/dL Creatinine 1.5 H (0.6-1.3) mg/dL Estimated GFR (MDRD) 33 L (>89) Glucose 298 H (74-104) mg/dL POC Whole Bld Glucose 321 (70-100) mg/dL Lactic Acid 1.6 (0.5-2.2) mmol/L Calcium 9.0 (8.5-10.3) mg/dL Total Bilirubin 0.7 (0.2-1.0) mg/dL AST 35 (10-42) IU/L ALT 22 (10-60) IU/L Alkaline Phosphatase 85 (42-121) IU/L B-Natriuretic Peptide 159 H (5-100) pg/mL Total Protein 6.8 (6.4-8.9) g/dL Albumin 3.7 (3.2-5.5) g/dL Globulin 3.1 (2.1-4.2) g/dL Albumin/Globulin Ratio 1.2 (1.0-2.2) Procalcitonin Immunoas (<0.5) ng/mL 12/01/24 Range/Units 03:00 WBC (4.8-10.8) x10^3/uL RBC (4.20-5.40) 10^6/uL Hgb (12.0-16.0) g/dL Hct (37.0-47.0) % MCV (81.0-99.0) fL MCH (27.0-31.0) pg MCHC (32.0-36.0) g/dL RDW (12.0-15.0) % Plt Count (130-450) 10^3/uL MPV (7.9-10.8) fL Neut # (Auto) (1.5-6.6) 10^3/uL Lymph # (Auto) (1.5-3.5) 10^3/uL Hanson # (Auto) (0.0-1.0) 10^3/uL Eos # (Auto) (0.0-0.7) 10^3/uL Baso # (Auto) (0.0-0.1) 10^3/uL Absolute Nucleated RBC x10^3/uL Total Counted Band Neuts % (Manual) (0 - 10) % Abnorm Lymph % (Manual) % Nucleated RBC % /100WBC Neutrophils # (Manual) (1.5-6.6) 10^3/uL Lymphocytes # (Manual) (1.5-3.5) 10^3/uL Monocytes # (Manual) (0.0-1.0) 10^3/uL Eosinophils # (Manual) (0-0.7) 10^3/uL Basophils # (Manual) (0-0.1) 10^3/uL Differential Comment Manual Slide Review WBC Morphology (NORMAL) Platelet Estimate (NORMAL) Platelet Morphology (NORMAL) RBC Morph Micro Appear (NORMAL) Sodium (135-145) mmol/L Potassium (3.5-4.5) mmol/L Chloride (101-111) mmol/L Carbon Dioxide (21-32) mmol/L Anion Gap (6-13) BUN (6-20) mg/dL Creatinine (0.6-1.3) mg/dL Estimated GFR (MDRD) (>89) Glucose (74-104) mg/dL POC Whole Bld Glucose (70-100) mg/dL Lactic Acid (0.5-2.2) mmol/L Calcium (8.5-10.3) mg/dL Total Bilirubin (0.2-1.0) mg/dL AST (10-42) IU/L ALT (10-60) IU/L Alkaline Phosphatase (42-121) IU/L B-Natriuretic Peptide (5-100) pg/mL Total Protein (6.4-8.9) g/dL Albumin (3.2-5.5) g/dL Globulin (2.1-4.2) g/dL Albumin/Globulin Ratio (1.0-2.2) Procalcitonin Immunoas 0.18 (<0.5) ng/mL Sepsis Event Note (H) Evaluation Current Stage of Sepsis: Sepsis Possible source of Sepsis: positive Pulmonary Sepsis Criteria Sepsis Criteria: Recorded Temperature greater than 38.3C or Less than 36C, Recorded Respiratory Rate greater than 20 and WELLFIELD TECHNICIAN: altered consciousness (unrelated to primary neuro pathology) Assessment/Plan Problem List (1) Hypoxia: (2) COVID: (3) CHF exacerbation: (4) CAP (community acquired pneumonia): (5) Type 2 diabetes mellitus with diabetic polyneuropathy: (6) Hypothyroidism, unspecified: (7) Dehydration: (8) Trigger finger:
--- NOTE | 2024-12-02 18:47 | Discharge Summary ---
"Discharge Summary Admit Date: 11/30/24 Discharge Date: 12/02/24 Discharging Provider: Disha Villa PA-C Primary Care Provider: Madi Herrera MD Code Status: Do Not Attempt Resuscitation DIAGNOSES Discharge Diagnoses with Status of Each Condition: Acute hypoxic respiratory failure, on 2 to 3 L of oxygen via nasal cannula maintaining saturations COVID-19 infection CHF exacerbation Community-acquired pneumonia Diabetes on insulin Hypothyroidism Dehydration Recent trigger finger release HPI History of Present Illness: 79-year-old female who has been in the ED for approximately 30 hours. She came in from where she lives at [facility] with a previous positive COVID test feeling ill and having some desaturations to 88% on room air. Apparently she recovered when she was brought into the emergency department and had been on room air for a period of time. She then has decompensated during the night with increasing oxygen requirements now requiring 2 L of nasal cannula oxygen to maintain a saturation of 92 to 93% has become intermittently obtunded and febrile to 101.5. The emergency department has asked us to admit this patient she was discussed with Dr. Torres. We are admitting her for acute hypoxic respiratory failure with COVID-19 infection and altered mental status. She moved from [place] about 2 years ago when she was living in poor conditions with minimal assistance in her own home. She was not doing well at that time. She lived with her granddaughter for about a year over in [place] when her care needs became too much to handle. She has never been a physically active person and has been wheelchair-bound for the last 6 to 8 months. Previous to that she was using a walker. She has had lots of weight gain since moving from [place] to [place]. Her diabetes is not well-controlled and she struggles with incontinence. Her son Cesar relates to me that he is her eldest and only living child and would therefore be her surrogate decision maker. He relates to me that she does want DNR status. He believes there is a POLST on file at [facility] but I need to obtain this document. Mentally however his mother is quite sharp. She enjoys sitting and doing art projects is a good conversationalist and has not had any problems with dementia CONSULTS | PROCEDURES Procedures: Chest x-rays on 11/29, 11/30 and 12/01: Basilar atelectasis, increased pulmonary vascularity suggestive of edema streaky basilar opacity and edema HOSPITAL COURSE Hospital Course: 79-year-old female who presented to the emergency department from her care facility with a stated complaint of positive for COVID. She had been sick for several days with complaints of shortness of breath and hypoxia and increasing lethargy. When she presented to the emergency department she was oriented to self only. She was boarded in the emergency department for approximately 30 hours after having a workup which was significant for a chest x-ray showing patchy right basilar atelectasis. Her mental status continued to decline. She was noted by the daytime emergency department doc to be weak and a bit confused but responsive and answering questions. Her scheduled medications were ordered. She remained on 2 L via nasal cannula and had reasonable urine output via pure wick catheter. She was then evaluated by the third emergency room physician who repeated a respiratory PCR panel showing only a COVID infection, repeated a chest x-ray which then showed increased pulmonary vascularity suggestive of edema. Her oxygen requirements were not increasing she remained on 2 to 3 L via nasal cannula for the duration of her admission with oxygen saturations in the low to mid 90s. Late in her emergency department course she did spike a fever. Antibiotics were started late in her emergency department course just prior to her admission. Laboratory findings were significant for increasing sodium from 141 to156 during the patient's admission. This was treated with fluids as she was not taking in p.o. due to her mental status. Her creatinine was slowly rising from 1.3 on admission to 1.8 when it was checked last. On admission to the floor treatment with remdesivir in addition to treatment for community-acquired pneumonia was initiated. She was started on basal rate of IV fluids and given several boluses. She was started on steroids at the time that she was admitted to the floor in order to decrease the reaction happening in her lungs. She never experienced hypotension she was always hypertensive EKG showed sinus tachycardia. On the day of her admission to the floor I had a conversation with her son. She has been physically unwell for several years and unable to take care of herself. However mentally she has done well and continues to be a bright and interactive person. She is enjoyed being at [facility] where she is an avid crafter and makes things for everyone in her life. On hospital day 3 her vital signs remained stable, her oxygen requirement was not increasing she remained hypertensive and tachycardic. Her level of responsiveness continued to decline. Nursing bedside shift report was completed at 1531. Patient's vital signs remained stable. RN entered room for initial shift nursing assessment at 1655 found the patient to be unresponsive, apneic pulseless and pale. She was declared at 1702. Her son was on the way to the hospital as I had called him earlier in the day and requested that he be present at the bedside as I was concerned about his mother and her current state of health. He was just arriving at the hospital at the moment she . He was informed of her by myself and taken to the bedside. All of his questions were answered. ALLERGIES Allergies Allergy/AdvReac Type Severity Reaction Status Date / Time venom-honey bee Allergy Severe Anaphylaxis Verified 11/29/24 06:53 potassium sorbate Allergy Mild Unknown Verified 11/29/24 06:53 warfarin AdvReac Mild Alopecia Verified 11/29/24 06:53 MEDICATIONS Ambulatory Orders Medication Instructions Recorded Confirmed amlodipine 10 mg tablet (Norvasc) 10 mg PO QDAY 11/13/24 11/29/24 aripiprazole 5 mg tablet 2.5 mg PO QPM 11/13/24 11/29/24 atorvastatin 10 mg tablet (Lipitor) 10 mg PO QPM 11/13/24 11/29/24 bupropion HCl 150 mg 24 hr tablet, 150 mg PO DAILY 11/13/24 11/29/24 extended release (Wellbutrin XL) diclofenac sodium 1 % topical gel 4 g topical QID PRN pain 11/13/24 11/29/24 diphenoxylate-atropine 2.5 1 tab PO DAILY PRN diarrhea 11/13/24 11/29/24 mg-0.025 mg tablet duloxetine 30 mg capsule,delayed 30 mg PO BID 11/13/24 11/29/24 release empagliflozin 10 mg tablet 10 mg PO DAILY 11/13/24 11/29/24 (Jardiance) furosemide 20 mg tablet 20 mg PO BID 11/13/24 11/29/24 lisinopril 30 mg tablet 30 mg PO DAILY 11/13/24 11/29/24 pregabalin 150 mg capsule 150 mg PO BID 11/13/24 11/29/24 acetaminophen 325 mg tablet 650 mg PO Q6H PRN pain, mild 11/29/24 11/29/24 aspirin 81 mg chewable tablet 81 mg PO DAILY 11/29/24 11/29/24 buspirone 5 mg tablet 5 mg PO TID 11/29/24 11/29/24 calcium 600 mg (as 1 tab PO BID 11/29/24 11/29/24 carbonate)-vitamin D3 5 mcg (200 unit) tablet (Calcium 600 + D(3)) cholecalciferol (vitamin D3) 50 50 mcg PO DAILY 11/29/24 11/29/24 mcg (2,000 unit) capsule cranberry 500 mg capsule 500 mg PO DAILY 11/29/24 11/29/24 guaifenesin 600 mg tablet, 600 mg PO BID PRN cough 11/29/24 11/29/24 extended release 12 hr (Mucinex) hydrocodone 5 mg-acetaminophen 325 1 tab PO BID PRN pain, moderate 11/29/24 11/29/24 mg tablet insulin aspart U-100 100 unit/mL 1 sliding scale dose subcut TIDWM 11/29/24 11/29/24 (3 mL) subcutaneous pen (Novolog FlexPen U-100 Insulin aspart) insulin glargine-yfgn 100 unit/mL 22 unit subcut QPM 11/29/24 11/29/24 (3 mL) subcutaneous pen insulin glargine-yfgn 100 unit/mL 40 unit subcut QAM 11/29/24 11/29/24 (3 mL) subcutaneous pen levothyroxine 175 mcg tablet 175 mcg PO QDAC 11/29/24 11/29/24 magnesium L-lactate 84 mg 84 mg PO DAILY 11/29/24 11/29/24 tablet,extended release montelukast 10 mg tablet 10 mg PO QPM 11/29/24 11/29/24 multivitamin (Daily Multi-Vitamin 1 tab PO DAILY 11/29/24 11/29/24 tablet) omeprazole 20 mg capsule,delayed 20 mg PO QDBREAKFAST 11/29/24 11/29/24 release polyethylene glycol 3350 17 gram 17 g PO DAILY 11/29/24 11/29/24 oral powder packet (Miralax) potassium chloride 20 mEq 20 meq PO BID 11/29/24 11/29/24 tablet,extended release(part/cryst) urea 20 % topical cream 1 applic topical QPM PRN healing 11/29/24 11/29/24 (Ureacin-20) fissures vitamin B complex (Vitamins B 1 cap PO DAILY 11/29/24 11/29/24 Complex capsule) PHYSICAL EXAM AT DISCHARGE Physical Exam Other/Comments: Without respirations or heartbeat. LABS 12/02/24 10:28 12/02/24 10:28 SEPSIS Current Stage of Sepsis: Sepsis Possible source of Sepsis: Pulmonary Confirmed Source and Organism (if known) of Sepsis: COVID 19 Sepsis Criteria: Recorded Temperature greater than 38.3C or Less than 36C, Recorded Respiratory Rate greater than 20 and IMMIGRATION ASSOCIATE: altered consciousness (unrelated to primary neuro pathology) TIME SPENT Time Spent in Discharge (Minutes): 45 Discharge Plan Discharge Patient Disposition: 20 Print Language: Bengali Date/Time: 12/02/24 17:02"
== END 2024-12-02 17:02 | disposition expired | DRG 871 ==
LOC: ED 05:43 → MS2 11-30 12:57
PROVIDERS: ADMIT Physician Assistant Medical; ATTEND Physician Assistant Medical
DX: U07.1 COVID-19; J96.01 Acute respiratory failure with hypoxia; I11.0 Hypertensive heart disease with heart failure; Z20.818 Contact with and (suspected) exposure to other bacterial communicable diseases; Z79.84 Long term (current) use of oral hypoglycemic drugs; R32 Unspecified urinary incontinence; Z66 Do not resuscitate; J18.9 Pneumonia, unspecified organism; Z20.828 Contact with and (suspected) exposure to other viral communicable diseases; E86.0 Dehydration; Z86.73 Personal history of transient ischemic attack (TIA), and cerebral infarction without residual deficits; Z79.4 Long term (current) use of insulin; A41.9 Sepsis, unspecified organism; Z79.890 Hormone replacement therapy; I50.9 Heart failure, unspecified; Z79.899 Other long term (current) drug therapy; E03.9 Hypothyroidism, unspecified; E11.42 Type 2 diabetes mellitus with diabetic polyneuropathy; Z79.82 Long term (current) use of aspirin; Z96.653 Presence of artificial knee joint, bilateral; J44.0 Chronic obstructive pulmonary disease with (acute) lower respiratory infection